=== PATIENT | male | born 1935 | race Caucasian/White ===

== ENCOUNTER 2016-12-29 11:26 | Inpatient (IN) | payer OTHER ==
[~2016-12-29] VITALS: Ht 160 cm; Wt 52.0 kg
[2016-12-29 15:09] VITALS: TEMP 98.5
[2016-12-29] MEDS ORDERED: PIPER-TAZO 3.375 GM IV (PMX) 100 ML IVPB ONE (15:30)
[2016-12-29] MEDS ORDERED: SOD CHLORIDE 0.9% 500 ML IV STA (15:32)
--- NOTE | 2016-12-29 15:44 | ERA ---
ER Documentation Chief Complaint Date/Time DATE: 12/29/16 TIME: 15:33 Chief Complaint Sent from for margaretteal HPI Patient is an 81-year-old male with recent surgery 3 months ago for prostatectomy and cystectomy with formation of an ileal conduit. He presents to the ER today with 1 week with no urine output from his urostomy. He has been having clear diarrhea. He has had subjective fever and generalized weakness. There is no history of vomiting. He denies abdominal pain. He denies shortness of breath. He was treated with a course of Flagyl for unknown reason 2 weeks ago. ROS All systems reviewed and are negative except as per history of present illness. Allergies Allergies: Coded Allergies: No Known Allergy (Unverified , 12/29/16) PMhx/Soc Past medical history: Prostate cancer Past surgical history: Prostatectomy and cystectomy Social history: Denies tobacco or alcohol FmHx Family History: No coronary disease, No diabetes Physical Exam Vitals Vital Signs Date Time Temp Pulse Resp B/P Pulse Ox O2 Delivery O2 Flow Rate FiO2 12/29/16 15:09 98.5 85 20 173/68 99 12/29/16 11:36 98.5 91 20 125/69 97 Physical Exam Const: Alert, no acute distress Head: Atraumatic Eyes: Normal Conjunctiva, no pallor, no icterus ENT: Normal External Ears, Nose and Mouth. Mucous membranes moist Neck: Full range of motion. No meningismus. Resp: Clear to auscultation bilaterally, no wheezes. Trace left basilar rales Cardio: Regular rate and rhythm, no murmurs Abd: Soft, non tender, non distended. Multiple surgical scars. Right lower quadrant urostomy Skin: No petechiae or rashes Back: No midline or flank tenderness Ext: No cyanosis, 2+ pitting edema bilateral legs Neur: Awake and alert, cranial nerves II through XII intact bilaterally, moves 4 extremities appropriately Psych: Normal Mood and Affect Result Diagram: 12/29/16 1625 12/29/16 1625 Results 24 hrs Laboratory Tests Test 12/29/16 16:25 White Blood Count 12.010^3/ul Red Blood Count 3.7810^6/ul Hemoglobin 10.2g/dl Hematocrit 31.2% Mean Corpuscular Volume 82.5fl Mean Corpuscular Hemoglobin 27.0pg Mean Corpuscular Hemoglobin Concent 32.7g/dl Red Cell Distribution Width 21.2% Platelet Count 08088^3/UL Mean Platelet Volume 8.7fl Neutrophils % 82.5% Lymphocytes % 9.9% Monocytes % 6.9% Eosinophils % 0.1% Basophils % 0.3% Nucleated Red Blood Cells % 0.0/100WBC Neutrophils # 9.910^3/ul Lymphocytes # 1.210^3/ul Monocytes # 0.810^3/ul Eosinophils # 0.010^3/ul Basophils # 0.010^3/ul Nucleated Red Blood Cells # 0.010^3/ul Prothrombin Time 16.5Sec Prothrombin Time Ratio 1.3 INR International Normalized Ratio 1.32 Sodium Level 133mmol/L Potassium Level 4.4mmol/L Chloride Level 109mmol/L Carbon Dioxide Level 12mmol/L Anion Gap 16 Blood Urea Nitrogen 66mg/dl Creatinine 3.13mg/dl Glucose Level 111mg/dl Lactic Acid Level 0.8mmol/L Calcium Level 8.8mg/dl Total Bilirubin 0.1mg/dl Direct Bilirubin 0.00mg/dl Indirect Bilirubin 0.1mg/dl Aspartate Amino Transf (AST/SGOT) 18IU/L Alanine Aminotransferase (ALT/SGPT) 26IU/L Alkaline Phosphatase 50IU/L Total Protein 7.6g/dl Albumin 4.2g/dl Globulin 3.40g/dl Albumin/Globulin Ratio 1.23 Current Medications Medications (Trade) Dose Ordered Sig/Tutu Route PRN Reason Start Time Stop Time Status Last Admin Dose Admin Piperacillin Sod/ Tazobactam Sod 100 ml @ 200 mls/hr ONCE ONCE IVPB 12/29/16 15:30 12/29/16 15:30 DC Sodium Chloride (NS) 500 ml @ 500 mls/hr Q1H STAT IV 12/29/16 15:32 12/29/16 16:31 DC 12/29/16 16:10 Furosemide 20 mg 20 mg ONCE ONCE IV 12/29/16 18:30 12/29/16 18:31 DC Sodium Chloride (NS) 500 ml @ 500 mls/hr Q1H ONCE IV 12/29/16 18:30 12/29/16 19:29 Ondansetron HCl (Zofran Inj) 4 mg BRIDGE ORDER PRN IV NAUSEA AND/OR VOMITING 12/29/16 19:00 12/30/16 18:59 Acetaminophen (Tylenol Tab) 650 mg ER BRIDGE PRN PO MILD PAIN/FEVER 12/29/16 19:00 12/30/16 18:59 Procedures/MDM MDM: Patient is an 81-year-old male with urostomy for 3 months who presents with no urine output for 1 week. He is afebrile. He has signs of edema in the extremities. He has history of renal insufficiency of unknown severity and duration in the past. A CT scan was performed and shows severe right hydronephrosis and moderate left hydronephrosis. I spoke with Dr. Cook, the urologist on-call, and he states that the hydronephrosis is likely due to reflux , and that the patient may be prerenal. He recommended given IV fluids and Lasix. The patient will be admitted to the hospital for further workup by Dr. Liriano. Per Dr. Cook, if the patient is not producing urine after receiving hydration and diuretics, he will require a nephrostomy. The patient does have signs of acidosis, but it appears to be hyperchloremic, as anion gap is not significantly elevated. Departure Diagnosis: Primary Impression: Acute renal failure Qualified Code: N17.9 - Acute renal failure, unspecified acute renal failure type Additional Impression: Hydronephrosis Qualified Code: N13.30 - Hydronephrosis, unspecified hydronephrosis type Condition: LATOYA Sweeney MD Dec 29, 2016 15:44
--- NOTE | 2016-12-29 16:20 | RADRPT ---
PROCEDURE: Chest x-ray CLINICAL INDICATION: Abdominal pain TECHNIQUE: Chest single view COMPARISON: None FINDINGS: The heart is normal in size. The pulmonary vessels are normal in caliber. The lungs are clear. Th e costophrenic angles are sharp. The visualized bony thorax is unremarkable. IMPRESSION: No acute cardiopulmonary disease. RPTAT: HH .Miguel Taylor MD, Date Time Electronically viewed and signed by .Miguel Taylor MD, MD on 12/29/2016 16:20 .W/
[2016-12-29 16:32] LABS: ADD SCAN DIFF NO
[2016-12-29 16:34] LABS: BASOPHILS % 0.3 % (0.0-2.0); EOSINOPHILS % 0.1 % (0.0-7.0); HEMATOCRIT 31.2 % (42.0-52.0); HEMOGLOBIN 10.2 g/dl (14.0-18.0); LYMPHOCYTES # 1.2 10^3/ul (0.8-2.9); LYMPHOCYTES % 9.9 % (15.0-51.0); MEAN CORPUSCULAR HGB CONC 32.7 g/dl (32.0-37.0); MEAN CORPUSCULAR VOLUME 82.5 fl (82.0-101.0); MEAN PLATELET VOLUME 8.7 fl (7.4-10.4); MONOCYTE # 0.8 10^3/ul (0.3-0.9); MONOCYTES % 6.9 % (0.0-11.0); NEUTROPHIL # 9.9 10^3/ul (1.6-7.5); NEUTROPHILS % 82.5 % (39.0-77.0); PLATELET COUNT 293 10^3/UL (140-415); RED BLOOD COUNT 3.78 10^6/ul (4.70-6.10); RED CELL DISTRIBUTION WIDTH 21.2 % (11.5-14.5)
[2016-12-29 16:49] LABS: INR 1.32; PROTIME 16.5 Sec (12.2-14.2); PT RATIO 1.3
[2016-12-29 16:51] LABS: ALBUMIN 4.2 g/dl (3.3-4.9); ALBUMIN/GLOBULIN RATIO 1.23; BILIRUBIN,INDIRECT 0.1 mg/dl (0-1.1); BILIRUBIN,TOTAL 0.1 mg/dl (0.2-1.3); CALCIUM 8.8 mg/dl (8.4-10.2); CREATININE 3.13 mg/dl (0.61-1.24); POTASSIUM 4.4 mmol/L (3.5-5.1); TOTAL PROTEIN 7.6 g/dl (6.1-8.1)
--- NOTE | 2016-12-29 17:21 | RADRPT ---
PROCEDURE: CT abdomen and pelvis without IV contrast. CLINICAL INDICATION: Abdominal pain TECHNIQUE: CT scan of the abdomen and pelvis without contrast was performed on the [employer] volumetric [address] scanner. The patient was scanned without intravenous contrast. Coronal and sagittal refo rmatted images were obtained from the axial source images. The CTDI vol is 6.82 mGy and the DLP is 3 37.06 mGy-cm. COMPARISON: None. FINDINGS: CT abdomen: A bleb is seen in the right lower lobe. The remainder of the lung bases are clear. The heart size is not enlarged and is without pericardial thickening or effusion. The liver is normal in size and density and is without focal mass or intrahepatic biliary dilatation . Simple hepatic cysts are seen with the largest measuring 2.7 x 2.2 cm in size. The spleen is radha l in size and homogeneous in density. A small hiatal hernia is seen. The stomach is otherwise grossl y unremarkable. a small cystic structure is seen in the pancreatic tail measuring 8 mm in size. Th e remainder of the pancreas as visualized is normal. The gallbladder and biliary tree are unremarka ble and there is no evidence for common bile duct dilatation. The adrenal glands are symmetric and normal. The kidneys are symmetric in size. Severe right hydroureteronephrosis is seen with moderat e left hydroureteronephrosis. No renal calculus or mass lesion is seen. The aorta is of normal in caliber. There is no retroperitoneal lymphadenopathy. The yamileth hepatis region is clear. A right lower quadrant stoma is seen containing the distal small bowel. Anastomot ic sutures are seen in the right hemicolon. The transverse colon, left hemicolon, and the rectosigm oid region are fluid filled and distended. The right hemicolon is stool-filled. The remainder of th e small bile and mesentery, as visualized, are otherwise unremarkable. No inflammatory changes in th e periappendiceal region is seen. CT pelvis: The prostate and seminal vesicles are not identified. Multiple surgical clips in the pelvis are see n. The pelvic sidewalls and inguinal regions are clear. No pelvic mass, lymphadenopathy, or free f luid is seen. No acute inflammation is seen. The urinary bladder is not identified. Degenerative spondylosis of the lumbar spine is seen. No osteolytic or osteoblastic lesion is detec leesa. IMPRESSION: 1. Evidence of a prior cystectomy and cholecystectomy as described above. 2. Severe right hydroureteronephrosis and moderate left hydroureteronephrosis which may be secondar y to reflux from urinary diversion given the right lower quadrant stoma. Correlation to prior surgi michelle history is suggested. 3. Fluid filled large bowel from the transverse colon to the rectosigmoid region which may be secon blu to colitis. The possibility of a colonic ileus should also be considered. 4. Small hiatal hernia. RPTAT: HPNM Physician Henok Date Time Electronically viewed and signed by Damir Garcia Physician on 12/29/2016 17:21 /
[2016-12-29] MEDS ORDERED: SOD CHLORIDE 0.9% 500 ML IV ONE (18:30)
[2016-12-29] MEDS ORDERED: FUROSEMIDE 20 MG INJ IV ONE (18:30)
[2016-12-29] MEDS ORDERED: ACETAMINOPHEN 325 MG TAB PO PRN (19:00)
[2016-12-29] MEDS ORDERED: ONDANSETRON 4 MG INJ IV PRN ×2 (19:00→19:30)
[2016-12-29] MEDS ORDERED: DEXTROSE 5%-0.45% NACL 1,000 ML IV SCH (19:20)
[2016-12-29] MEDS ORDERED: ACETAMINOPHEN 650 MG SUPP PR PRN (19:30)
[2016-12-29] MEDS ORDERED: DOCUSATE SODIUM 100 MG CAP PO PRN (19:30)
[2016-12-29] MEDS ORDERED: BISACODYL 10 MG SUPP PR PRN (19:30)
[2016-12-29] MEDS ORDERED: ZOLPIDEM 5 MG TAB PO PRN (19:30)
[2016-12-29] MEDS ORDERED: morphine 2 MG INJ IV PRN (19:30)
[2016-12-29] MEDS ORDERED: MAGNESIUM HYDROXIDE 30ML CUP PO PRN (19:30)
[2016-12-29] MEDS ORDERED: BISACODYL (EC) 5 MG TAB PO PRN (19:30)
[2016-12-29] MEDS ORDERED: NACL 0.9% 3 ML SYG IV SCH (19:30)
[2016-12-29 20:57] VITALS: Ht 160 cm; Wt 52.0 kg
[2016-12-29 20:58] VITALS: BP 162/77; PULSE 162; RESP 18
[2016-12-29] MEDS: LORAZEPAM 0.5 MG TAB PO SCH (22:26)
[2016-12-29] MEDS: hydrALAzine 20 MG INJ IV PRN (22:27)
[2016-12-29 22:40] LABS: ADD UMIC YES; UR ASCORBIC ACID NEGATIVE (NEGATIVE); UR BILIRUBIN (Dip) NEGATIVE (NEGATIVE); UR BLOOD (Dip) 2+ mg/dL (NEGATIVE); UR CLARITY CLOUDY (CLEAR); UR COLOR YELLOW (YELLOW); UR GLUCOSE (Dip) NEGATIVE (NEGATIVE); UR KETONES (Dip) NEGATIVE (NEGATIVE); UR LEUKOCYTE ESTERASE (Dip) 3+ Leu/ul (NEGATIVE); UR MUCUS FEW /HPF (NONE SEEN); UR NITRITE (Dip) NEGATIVE (NEGATIVE); UR RBC 33 /HPF (0-5); UR SPECIFIC GRAVITY (Dip) 1.006 (1.003-1.030); UR SQUAMOUS EPITHELIAL CELL FEW /HPF (FEW); UR TOTAL PROTEIN (Dip) 1+ mg/dl (NEGATIVE); UR UROBILINOGEN (Dip) NEGATIVE (NEGATIVE)
--- NOTE | 2016-12-29 22:57 | QN ---
Documentation Comment [id number] MIKE TORREZ MD Dec 29, 2016 22:57
[2016-12-29] MEDS ORDERED: SODIUM BICARBONATE (IV ADD) 50 MEQ in DEXTROSE 5%-0.45% NACL 1,000 ML IV SCH (23:30)
--- NOTE | 2016-12-30 05:01 | HP ---
DATE OF ADMISSION: 12/29/2016 HISTORY OF PRESENT ILLNESS: Mr. Puga is an 81-year-old male with history of prostate and questionable bladder cancer who came from [place]. The patient was seen by er md in the ER. The patient is status post prostatectomy, cystectomy, and the patient had _. Now he has decreased urine output and is admitted for further management. Blood pressure is 173/68. WBC 12, hematocrit 31.2, platelet count of 293. Sodium 133, BUN 66, creatinine 0.13. The patient had abdominopelvic scan that showed the patient has evidence of prior cystectomy and cholecystectomy, severe right hydroureteronephrosis, and moderate left hydroureteronephrosis which may be secondary to reflux from urinary diversion, fluid-filled large bowel from the transverse colon to the rectosigmoid. The patient is admitted for further management. PAST MEDICAL HISTORY: As mentioned above, history of cystectomy, prostatectomy , cholecystectomy. ALLERGY HISTORY: NEGATIVE. FAMILY HISTORY: Negative. SOCIAL HISTORY: Negative. REVIEW OF SYSTEMS: Cannot be obtained. PHYSICAL EXAMINATION: GENERAL: The patient is awake and alert. VITAL SIGNS: Stable. HEENT: Head is atraumatic, normocephalic. Pupils equal, reactive to light. NECK: Supple. No JVD. LUNGS: Clear. CARDIOVASCULAR: S1, S2 normal. ABDOMEN: Soft, slightly distended. Bowel sounds positive. The patient has a urostomy bag noted. EXTREMITIES: There is no cyanosis, clubbing, or edema. CENTRAL NERVOUS SYSTEM: The patient is awake, alert, with no focal deficit. LABORATORY DATA: As mentioned above. IMPRESSION: 1. Possible acute on chronic kidney disease. 2. Urinary tract infection. 3. Hyponatremia. 4. Metabolic acidosis. 5. Dehydration. 6. Anemia. 7. Incomplete database. PLAN: To obtain urine sodium and creatinine, and the patient will be given IV fluid. The patient will have bicitra as well as the patient will have antibiotic. Urology consultation, deep venous thrombosis prophylaxis, and pain medication orders were done. Dictated By: MIKE FERRIS/MARIA ELENA Conf#: [id number] DID#: [id number] LISANDRA
[2016-12-30 05:09] LABS: ADD SCAN DIFF NO
[2016-12-30 05:23] LABS: BASOPHILS % 0.3 % (0.0-2.0); EOSINOPHILS # 0.1 10^3/ul (0.0-0.5); EOSINOPHILS % 1.1 % (0.0-7.0); HEMATOCRIT 29.1 % (42.0-52.0); HEMOGLOBIN 9.2 g/dl (14.0-18.0); LYMPHOCYTES # 1.6 10^3/ul (0.8-2.9); LYMPHOCYTES % 18.2 % (15.0-51.0); MEAN CORPUSCULAR HEMOGLOBIN 26.3 pg (29.0-33.0); MEAN CORPUSCULAR HGB CONC 31.6 g/dl (32.0-37.0); MEAN CORPUSCULAR VOLUME 83.1 fl (82.0-101.0); MEAN PLATELET VOLUME 8.8 fl (7.4-10.4); MONOCYTE # 0.9 10^3/ul (0.3-0.9); MONOCYTES % 9.8 % (0.0-11.0); NEUTROPHIL # 6.2 10^3/ul (1.6-7.5); NEUTROPHILS % 70.3 % (39.0-77.0); PLATELET COUNT 260 10^3/UL (140-415); RED CELL DISTRIBUTION WIDTH 21.2 % (11.5-14.5); WHITE BLOOD COUNT 8.9 10^3/ul (4.8-10.8)
[2016-12-30] MEDS: PANTOPRAZOLE 40 MG INJ IV SCH (05:40)
[2016-12-30 05:45] LABS: ALBUMIN/GLOBULIN RATIO 0.93; BILIRUBIN,INDIRECT 0.1 mg/dl (0-1.1); BILIRUBIN,TOTAL 0.1 mg/dl (0.2-1.3); CALCIUM 8.7 mg/dl (8.4-10.2); CREATININE 2.85 mg/dl (0.61-1.24); POTASSIUM 4.1 mmol/L (3.5-5.1); TOTAL PROTEIN 6.2 g/dl (6.1-8.1)
[2016-12-30 07:00] VITALS: BP 127/59; RESP 20
[2016-12-30] MEDS: SODIUM BICARBONATE (IV ADD) 100 MEQ in DEXTROSE 5%-0.45% NACL 900 ML IV SCH ×2 (08:28→22:05)
--- NOTE | 2016-12-30 18:57 | RADRPT ---
PROCEDURE: XR Abdomen. CLINICAL INDICATION: Abdominal pain, constipation, only. A TECHNIQUE: AP abdomen x-ray. COMPARISON: CT abdomen and pelvis December 29, 2016 FINDINGS: The bowel gas pattern is normal. There is no evidence of obstruction. There is diffuse, mild constip ation, and in intestinal ileus. There are no findings of free air or perforation. There are no abnormal calcifications overlying the urinary tracts. There are surgical clips throughout the pelvis. The osseus structures are unremarkable. IMPRESSION: Mild constipation with intestinal ileus. Overall, no significant interval change. RPTAT: QQ .Herminia Mckeon MD, MD Date Time Electronically viewed and signed by .Herminia Mckeon MD, on 12/30/2016 18:56 .F/
[2016-12-30] MEDS: hydrALAzine 20 MG INJ IV PRN (19:41)
[2016-12-30 19:43] VITALS: BP 182/84; PULSE 84; RESP 18
[2016-12-30 19:46] VITALS: BP 152/56; PULSE 96; RESP 18
[2016-12-30] MEDS: CITRIC ACID/SODIUM CITRATE 15 ML CUP PO SCH (20:57)
[2016-12-30] MEDS: LORAZEPAM 0.5 MG TAB PO SCH (20:57)
[2016-12-31] MEDS: PANTOPRAZOLE 40 MG INJ IV SCH (05:27)
[2016-12-31 09:00] VITALS: BP 166/79; RESP 20
[2016-12-31] MEDS: hydrALAzine 20 MG INJ IV PRN ×2 (09:10→20:45)
[2016-12-31] MEDS: CITRIC ACID/SODIUM CITRATE 15 ML CUP PO SCH ×3 (09:10→20:45)
[2016-12-31 09:34] VITALS: BP 130/60; PULSE 96; RESP 20
[2016-12-31] MEDS: SODIUM BICARBONATE (IV ADD) 100 MEQ in DEXTROSE 5%-0.45% NACL 900 ML IV SCH (14:42)
[2016-12-31 17:38] VITALS: BP 144/75; PULSE 91; RESP 16
--- NOTE | 2016-12-31 18:23 | PN ---
Date/Time of Note Date/Time of Note DATE: 12/31/16 TIME: 18:22 Assessment/Plan VTE Prophylaxis VTE Prophylaxis Intervention: other Lines/Catheters IV Catheter Type (from Nrs): Peripheral IV Urinary Cath still in place: No Assessment/Plan Chief Complaint/Hosp Course IMPRESSION: 1. Possible acute on chronic kidney disease. 2. Urinary tract infection. 3. Hyponatremia. 4. Metabolic acidosis. 5. Dehydration. 6. Anemia. 7. Incomplete database. plan ck labs bicitra Problems: Subjective 24 Hr Interval Summary Respiratory: no complaints Cardiovascular: no complaints Exam/Review of Systems Vital Signs Vitals Vital Signs Date Time Temp Pulse Resp B/P Pulse Ox O2 Delivery O2 Flow Rate FiO2 12/31/16 17:38 98.0 91 16 144/75 98 Room Air Intake and Output 12/30/16 12/30/16 12/31/16 15:00 23:00 07:00 Intake Total 210 ml 2280 ml 700 ml Output Total 0 ml Balance 210 ml 2280 ml 700 ml Exam Neck: supple Respiratory: clear to auscultation Cardiovascular: regular rate and rhythm Gastrointestinal: soft Results Result Diagram: 12/30/16 0450 12/30/16 0450 Medications Medications Current Medications Ondansetron HCl (Zofran Inj) 4 mg Q6H PRN IV NAUSEA AND/OR VOMITING; Start at 19:30 Acetaminophen (Tylenol Tab) 650 mg Q6H PRN PO PAIN LEVEL 1-3 OR FEVER; Start at 19:30 Acetaminophen (Tylenol Supp) 650 mg Q6H PRN [place] PAIN LEVEL 1-3 OR FEVER; Start 12/29/16 at 19:30 Morphine Sulfate (morphine) 2 mg Q4H PRN IV SEVERE PAIN LEVEL 7-10; Start 12/29 at 19:30 Docusate Sodium (Colace) 100 mg Q12H PRN PO CONSTIPATION; Start 12/29/16 at 19: 30 Magnesium Hydroxide (Milk Of Mag) 30 ml DAILY PRN PO CONSTIPATION; Start at 19:30 Bisacodyl (Dulcolax) 5 mg DAILY PRN PO CONSTIPATION; Start 12/29/16 at 19:30 Bisacodyl (Dulcolax Supp) 10 mg DAILY PRN [place] CONSTIPATION; Start 12/29/16 at 19 :30 Zolpidem Tartrate (Ambien) 5 mg QHS PRN PO SLEEP; Start 12/29/16 at 19:30 Lorazepam (Ativan) 0.5 mg HS PO Last administered on 12/30/16 20:57; Admin Dose 0.5 MG; Start 12/29/16 at 22:15 Hydralazine HCl 10 mg 10 mg Q6H PRN IV SBP>155 Last administered on 12/31/16 09:10; Admin Dose 10 MG; Start 12/29/16 at 22:30 Sodium Bicarbonate/ Dextrose/Sodium Chloride (Na Bicarb/D5-1/ 2ns) 1,000 ml @ 70 mls/hr [id number] IV Last administered on 12/31/16 14:42; Admin Dose 70 MLS/HR ; Start 12/30/16 at 07:00 Citric Acid/ Sodium Citrate (Bicitra) 30 ml TID PO Last administered on 14:16; Admin Dose 30 ML; Start 12/30/16 at 21:00 Pantoprazole (Protonix Tab) 40 mg DAILY@06 PO ; Start 01/01/17 at 06:00 MIKE TORREZ MD Dec 31, 2016 18:23
--- NOTE | 2016-12-31 18:24 | PN ---
Date/Time of Note Date/Time of Note DATE: 12/31/16 TIME: 18:23 Assessment/Plan VTE Prophylaxis VTE Prophylaxis Intervention: other Lines/Catheters IV Catheter Type (from Nrs): Peripheral IV Urinary Cath still in place: No Assessment/Plan Chief Complaint/Hosp Course IMPRESSION: 1. Possible acute on chronic kidney disease. 2. Urinary tract infection. 3. Hyponatremia. 4. Metabolic acidosis. 5. Dehydration. 6. Anemia. 7. Incomplete database. plan ck labs bicitra iv w nahco3 Problems: Subjective 24 Hr Interval Summary Gastrointestinal: no complaints Genitourinary: no complaints Exam/Review of Systems Vital Signs Vitals Vital Signs Date Time Temp Pulse Resp B/P Pulse Ox O2 Delivery O2 Flow Rate FiO2 12/31/16 17:38 98.0 91 16 144/75 98 Room Air Intake and Output 12/30/16 12/30/16 12/31/16 15:00 23:00 07:00 Intake Total 210 ml 2280 ml 700 ml Output Total 0 ml Balance 210 ml 2280 ml 700 ml Exam Respiratory: clear to auscultation Cardiovascular: regular rate and rhythm Gastrointestinal: soft Results Result Diagram: 12/30/16 0450 12/30/16 0450 Medications Medications Current Medications Ondansetron HCl (Zofran Inj) 4 mg Q6H PRN IV NAUSEA AND/OR VOMITING; Start at 19:30 Acetaminophen (Tylenol Tab) 650 mg Q6H PRN PO PAIN LEVEL 1-3 OR FEVER; Start at 19:30 Acetaminophen (Tylenol Supp) 650 mg Q6H PRN [place] PAIN LEVEL 1-3 OR FEVER; Start 12/29/16 at 19:30 Morphine Sulfate (morphine) 2 mg Q4H PRN IV SEVERE PAIN LEVEL 7-10; Start 12/29 at 19:30 Docusate Sodium (Colace) 100 mg Q12H PRN PO CONSTIPATION; Start 12/29/16 at 19: 30 Magnesium Hydroxide (Milk Of Mag) 30 ml DAILY PRN PO CONSTIPATION; Start at 19:30 Bisacodyl (Dulcolax) 5 mg DAILY PRN PO CONSTIPATION; Start 12/29/16 at 19:30 Bisacodyl (Dulcolax Supp) 10 mg DAILY PRN [place] CONSTIPATION; Start 12/29/16 at 19 :30 Zolpidem Tartrate (Ambien) 5 mg QHS PRN PO SLEEP; Start 12/29/16 at 19:30 Lorazepam (Ativan) 0.5 mg HS PO Last administered on 12/30/16 20:57; Admin Dose 0.5 MG; Start 12/29/16 at 22:15 Hydralazine HCl 10 mg 10 mg Q6H PRN IV SBP>155 Last administered on 12/31/16 09:10; Admin Dose 10 MG; Start 12/29/16 at 22:30 Sodium Bicarbonate/ Dextrose/Sodium Chloride (Na Bicarb/D5-1/ 2ns) 1,000 ml @ 70 mls/hr [id number] IV Last administered on 12/31/16 14:42; Admin Dose 70 MLS/HR ; Start 12/30/16 at 07:00 Citric Acid/ Sodium Citrate (Bicitra) 30 ml TID PO Last administered on 14:16; Admin Dose 30 ML; Start 12/30/16 at 21:00 Pantoprazole (Protonix Tab) 40 mg DAILY@06 PO ; Start 01/01/17 at 06:00 MIKE TORREZ MD Dec 31, 2016 18:24
[2016-12-31 19:01] LABS: CALCIUM 8.6 mg/dl (8.4-10.2); CREATININE 2.8 mg/dl (0.61-1.24); POTASSIUM 3.5 mmol/L (3.5-5.1)
[2016-12-31 20:02] VITALS: BP 172/78; RESP 18
[2016-12-31] MEDS: LORAZEPAM 0.5 MG TAB PO SCH (20:45)
[2016-12-31 22:30] VITALS: BP 148/70
[2017-01-01] MEDS: SODIUM BICARBONATE (IV ADD) 100 MEQ in DEXTROSE 5%-0.45% NACL 900 ML IV SCH ×3 (01:54→22:14)
[2017-01-01] MEDS: PANTOPRAZOLE (EC) 40 MG TAB PO SCH (05:49)
[2017-01-01 06:00] LABS: CALCIUM 8.3 mg/dl (8.4-10.2); CREATININE 2.67 mg/dl (0.61-1.24); POTASSIUM 3.2 mmol/L (3.5-5.1)
[2017-01-01 07:57] VITALS: BP 187/84; RESP 16
[2017-01-01] MEDS: hydrALAzine 20 MG INJ IV PRN ×2 (08:50→19:54)
[2017-01-01] MEDS: CITRIC ACID/SODIUM CITRATE 15 ML CUP PO SCH (08:50)
[2017-01-01] MEDS ORDERED: POTASSIUM CHLORIDE (SR) 20 MEQ TAB PO STA (09:54)
[2017-01-01 11:28] VITALS: BP 160/79; PULSE 86; RESP 18
[2017-01-01 12:14] LABS: INR 1.25; PROTIME 15.8 Sec (12.2-14.2); PT RATIO 1.2
[2017-01-01] MEDS: CITRIC ACID/NA CITRATE 30 ML CUP PO SCH ×2 (14:24→20:01)
--- NOTE | 2017-01-01 17:56 | PN ---
Date/Time of Note Date/Time of Note DATE: 01/01/17 TIME: 17:54 Assessment/Plan VTE Prophylaxis VTE Prophylaxis Intervention: other Lines/Catheters IV Catheter Type (from Nrs): Peripheral IV Urinary Cath still in place: No Assessment/Plan Chief Complaint/Hosp Course IMPRESSION: 1. Possible acute on chronic kidney disease. 2. Urinary tract infection. 3. Hyponatremia. 4. Metabolic acidosis. 5. Dehydration. 6. Anemia. 7. hydronephrosis plan ck labs bicitra iv w nahco3 gu consult pending kcl Problems: Subjective 24 Hr Interval Summary Cardiovascular: no complaints Gastrointestinal: no complaints Genitourinary: No flank pain Exam/Review of Systems Vital Signs Vitals Vital Signs Date Time Temp Pulse Resp B/P Pulse Ox O2 Delivery O2 Flow Rate FiO2 01/01/17 11:28 98.4 86 18 160/79 99 Room Air Intake and Output 12/31/16 12/31/16 01/01/17 15:00 23:00 07:00 Intake Total 650 ml 1960 ml 300 ml Output Total 100 ml Balance 650 ml 1960 ml 200 ml Exam Neck: supple Respiratory: clear to auscultation Cardiovascular: regular rate and rhythm Gastrointestinal: soft Genitourinary - Male: No CVA tenderness Results Result Diagram: 12/30/16 0450 01/01/17 0435 Results 24 hrs Laboratory Tests Test 12/31/16 18:10 01/01/17 04:35 01/01/17 11:40 Sodium Level 135 142 Potassium Level 3.5 3.2 L Chloride Level 108 # 113 H Carbon Dioxide Level 17 L 19 L Anion Gap 14 13 Blood Urea Nitrogen 57 H 54 H Creatinine 2.80 H 2.67 H Glucose Level 131 # 101 Calcium Level 8.6 8.3 L Prothrombin Time 15.8 H Prothrombin Time Ratio 1.2 INR International Normalized Ratio 1.25 Medications Medications Current Medications Ondansetron HCl (Zofran Inj) 4 mg Q6H PRN IV NAUSEA AND/OR VOMITING; Start at 19:30 Acetaminophen (Tylenol Tab) 650 mg Q6H PRN PO PAIN LEVEL 1-3 OR FEVER; Start at 19:30 Acetaminophen (Tylenol Supp) 650 mg Q6H PRN [place] PAIN LEVEL 1-3 OR FEVER; Start 12/29/16 at 19:30 Morphine Sulfate (morphine) 2 mg Q4H PRN IV SEVERE PAIN LEVEL 7-10; Start 12/29 at 19:30 Docusate Sodium (Colace) 100 mg Q12H PRN PO CONSTIPATION; Start 12/29/16 at 19: 30 Magnesium Hydroxide (Milk Of Mag) 30 ml DAILY PRN PO CONSTIPATION; Start at 19:30 Bisacodyl (Dulcolax) 5 mg DAILY PRN PO CONSTIPATION; Start 12/29/16 at 19:30 Bisacodyl (Dulcolax Supp) 10 mg DAILY PRN [place] CONSTIPATION; Start 12/29/16 at 19 :30 Zolpidem Tartrate (Ambien) 5 mg QHS PRN PO SLEEP; Start 12/29/16 at 19:30 Lorazepam (Ativan) 0.5 mg HS PO Last administered on 12/31/16 20:45; Admin Dose 0.5 MG; Start 12/29/16 at 22:15 Hydralazine HCl 10 mg 10 mg Q6H PRN IV SBP>155 Last administered on 01/01/17 08:50; Admin Dose 10 MG; Start 12/29/16 at 22:30 Sodium Bicarbonate/ Dextrose/Sodium Chloride (Na Bicarb/D5-1/ 2ns) 1,000 ml @ 70 mls/hr [id number] IV Last administered on 01/01/17 07:55; Admin Dose 70 MLS/HR ; Start 12/30/16 at 07:00 Pantoprazole (Protonix Tab) 40 mg DAILY@06 PO Last administered on 01/01/17 05 :49; Admin Dose 40 MG; Start 01/01/17 at 06:00 Citric Acid/ Sodium Citrate (Bicitra) 30 ml TID PO Last administered on 14:24; Admin Dose 30 ML; Start 01/01/17 at 13:00 MIKE TORREZ MD Jan 01, 2017 17:56
[2017-01-01 19:51] VITALS: BP 185/85; PULSE 82; RESP 18
[2017-01-01] MEDS: LORAZEPAM 0.5 MG TAB PO SCH (20:01)
[2017-01-01 20:03] VITALS: BP 144/78; PULSE 80; RESP 18
[2017-01-01 20:57] VITALS: BP 142/77; PULSE 82; RESP 18
[2017-01-01] MEDS ORDERED: CITRIC ACID/NA CITRATE 30 ML CUP PO SCH (21:00)
[2017-01-02] VITALS (12 sets, daily range): BP systolic 125–181; BP diastolic 68–98; PULSE 92–98; RESP 16–20
[2017-01-02] MEDS: PANTOPRAZOLE (EC) 40 MG TAB PO SCH (05:40)
[2017-01-02 05:48] LABS: CALCIUM 8.2 mg/dl (8.4-10.2); CREATININE 2.32 mg/dl (0.61-1.24); POTASSIUM 3.6 mmol/L (3.5-5.1)
[2017-01-02] MEDS: CITRIC ACID/NA CITRATE 30 ML CUP PO SCH ×3 (09:00→20:53)
[2017-01-02] MEDS: hydrALAzine 20 MG INJ IV PRN ×2 (13:02→20:12)
[2017-01-02] MEDS ORDERED: LIDOCAINE 1% (MDV) 20 ML INJ ONE (15:07)
[2017-01-02] MEDS ORDERED: CEFAZOLIN 1 GM/50 ML (PMX) 50 ML IVPB ONE (15:56)
[2017-01-02] MEDS ORDERED: SOD CHLORIDE 0.9% 500 ML ONE (15:56)
[2017-01-02] MEDS ORDERED: FENTAnyl 50 MCG/ML VIAL ONE (15:56)
[2017-01-02] MEDS ORDERED: MIDAZOLAM 1 MG/ML 2 ML INJ ONE (15:56)
--- NOTE | 2017-01-02 17:22 | RADRPT ---
PROCEDURE: Ultrasound guidance for needle placement for right nephrostomy. CLINICAL INDICATION: Right hydronephrosis. TECHNIQUE: Informed consent was obtained. The procedure, risks, benefits, complications and alternatives were explained to the patient. Risks including bleeding and infection were explained. The patient underst ood and was willing to proceed. A procedural pause was performed. The patient's name, date of , and procedure to be performed w ere verified. Using local anesthetic, sterile technique and ultrasound guidance, a 22-gauge Chiba needle was advan geo into a mid pole alexis in the right kidney. A 0.018 in guidewire was inserted. The remainder of the study was performed with fluoroscopic guidance. The patient tolerated procedure well. COMPARISON: None. FINDINGS: The ultrasound images demonstrate the needle within a midpole alexis of the right kidney. IMPRESSION: 1. Successful ultrasound guidance for placement of the needle in the mid pole alexis of the right ki dney. RPTAT: QQ .Zachariah Ashley MD, MD Date Time Electronically viewed and signed by .Zachariah Ashley MD, on 01/02/2017 17:22 .R/
--- NOTE | 2017-01-02 18:45 | PN ---
Date/Time of Note Date/Time of Note DATE: 01/02/17 TIME: 18:44 Assessment/Plan VTE Prophylaxis VTE Prophylaxis Intervention: other Lines/Catheters IV Catheter Type (from Nrs): Peripheral IV Urinary Cath still in place: No Assessment/Plan Chief Complaint/Hosp Course IMPRESSION: 1. Possible acute on chronic kidney disease. 2. Urinary tract infection. 3. Hyponatremia. 4. Metabolic acidosis. 5. Dehydration. 6. Anemia. 7. hydronephrosis plan ck labs bicitra iv w nahco3 gu consult pending UROSTOMY TUBE Problems: Subjective 24 Hr Interval Summary Subjective hx not possible: other (FEELING BETTER) Exam/Review of Systems Vital Signs Vitals Vital Signs Date Time Temp Pulse Resp B/P Pulse Ox O2 Delivery O2 Flow Rate FiO2 01/02/17 17:30 Nasal Cannula 2 01/02/17 17:20 96 18 129/68 95 01/02/17 16:30 98.0 Intake and Output 01/01/17 01/01/17 01/02/17 15:00 23:00 07:00 Intake Total 720 ml 1680 ml 740 ml Output Total 250 ml 120 ml Balance 720 ml 1430 ml 620 ml Exam Neck: supple Respiratory: clear to auscultation Cardiovascular: regular rate and rhythm Gastrointestinal: soft Musculoskeletal: nl extremities to inspection Extremities: normal pulses Results Result Diagram: 12/30/16 0450 01/02/17 0430 Results 24 hrs Laboratory Tests Test 01/02/17 04:30 01/02/17 09:48 Sodium Level 142 Potassium Level 3.6 Chloride Level 108 Carbon Dioxide Level 26 Anion Gap 12 Blood Urea Nitrogen 44 H Creatinine 2.32 H Glucose Level 89 Calcium Level 8.2 L Activated Partial Thromboplast Time 30.0 Medications Medications Current Medications Ondansetron HCl (Zofran Inj) 4 mg Q6H PRN IV NAUSEA AND/OR VOMITING; Start at 19:30 Acetaminophen (Tylenol Tab) 650 mg Q6H PRN PO PAIN LEVEL 1-3 OR FEVER; Start at 19:30 Acetaminophen (Tylenol Supp) 650 mg Q6H PRN [place] PAIN LEVEL 1-3 OR FEVER; Start 12/29/16 at 19:30 Morphine Sulfate (morphine) 2 mg Q4H PRN IV SEVERE PAIN LEVEL 7-10; Start 12/29 at 19:30 Docusate Sodium (Colace) 100 mg Q12H PRN PO CONSTIPATION; Start 12/29/16 at 19: 30 Magnesium Hydroxide (Milk Of Mag) 30 ml DAILY PRN PO CONSTIPATION; Start at 19:30 Bisacodyl (Dulcolax) 5 mg DAILY PRN PO CONSTIPATION; Start 12/29/16 at 19:30 Bisacodyl (Dulcolax Supp) 10 mg DAILY PRN [place] CONSTIPATION; Start 12/29/16 at 19 :30 Zolpidem Tartrate (Ambien) 5 mg QHS PRN PO SLEEP; Start 12/29/16 at 19:30 Lorazepam (Ativan) 0.5 mg HS PO Last administered on 01/01/17 20:01; Admin Dose 0.5 MG; Start 12/29/16 at 22:15 Hydralazine HCl 10 mg 10 mg Q6H PRN IV SBP>155 Last administered on 01/02/17 13:02; Admin Dose 10 MG; Start 12/29/16 at 22:30 Sodium Bicarbonate/ Dextrose/Sodium Chloride (Na Bicarb/D5-1/ 2ns) 1,000 ml @ 70 mls/hr [id number] IV Last administered on 01/01/17 22:14; Admin Dose 70 MLS/HR ; Start 12/30/16 at 07:00 Pantoprazole (Protonix Tab) 40 mg DAILY@06 PO Last administered on 01/01/17 05 :49; Admin Dose 40 MG; Start 01/01/17 at 06:00 Citric Acid/ Sodium Citrate (Bicitra) 30 ml TID PO Last administered on 20:01; Admin Dose 30 ML; Start 01/01/17 at 13:00 MIKE TORREZ MD Jan 02, 2017 18:44
[2017-01-02] MEDS: SODIUM BICARBONATE (IV ADD) 100 MEQ in DEXTROSE 5%-0.45% NACL 900 ML IV SCH (20:51)
[2017-01-02] MEDS: LORAZEPAM 0.5 MG TAB PO SCH (20:51)
[2017-01-03 00:31] VITALS: BP 119/56; RESP 18
[2017-01-03] MEDS: SODIUM BICARBONATE (IV ADD) 100 MEQ in DEXTROSE 5%-0.45% NACL 900 ML IV SCH (04:10)
[2017-01-03 05:25] LABS: ADD SCAN DIFF NO
[2017-01-03] MEDS: PANTOPRAZOLE (EC) 40 MG TAB PO SCH (06:13)
[2017-01-03] MEDS: ACETAMINOPHEN 325 MG TAB PO PRN (06:19)
[2017-01-03 06:28] LABS: ALBUMIN 3.2 g/dl (3.3-4.9); ALBUMIN/GLOBULIN RATIO 1.06; CALCIUM 8.3 mg/dl (8.4-10.2); CREATININE 1.93 mg/dl (0.61-1.24); POTASSIUM 3.5 mmol/L (3.5-5.1); TOTAL PROTEIN 6.2 g/dl (6.1-8.1)
[2017-01-03 07:00] VITALS: BP 180/85; RESP 18
[2017-01-03 08:09] LABS: HEMATOCRIT 30.4 % (42.0-52.0); HEMOGLOBIN 9.8 g/dl (14.0-18.0); MEAN CORPUSCULAR HEMOGLOBIN 26.5 pg (29.0-33.0); MEAN CORPUSCULAR HGB CONC 32.2 g/dl (32.0-37.0); MEAN CORPUSCULAR VOLUME 82.2 fl (82.0-101.0); MEAN PLATELET VOLUME 9.6 fl (7.4-10.4); RED CELL DISTRIBUTION WIDTH 21.2 % (11.5-14.5)
--- NOTE | 2017-01-03 08:13 | RADRPT ---
PROCEDURE: Right nephrostomy tube placement with ultrasound and fluoroscopic guidance. CLINICAL INDICATION: Right hydronephrosis. TECHNIQUE: Prior to the procedure, informed consent was obtained from the patient. Risks including bleeding an d infection were explained to the patient. The patient understood and was willing to proceed. Prio r to the procedure, a 1 g of Ancef was administered intravenously. A procedural pause was performed . The patient's name, date of , and procedure to be performed were verified. Using ultrasound guidance, a 22-gauge Chiba needle was advanced into the kidney. Contrast was injec leesa, opacifying the right renal collecting system. Following this, a 6-Bolivian Yueh needle was advan geo into the right middle pole posterior calyx with ultrasound guidance. The tip was confirmed to b e in position with fluoroscopic guidance. The inner cannula was removed leaving the plastic sheath in position. A guidewire was advanced through the plastic sheath into the right renal pelvis. Foll owing this, the Yueh catheter was removed leaving the guidewire in position. An 8 Bolivian dilator was then advanced over the Amplatz guidewire. This was then removed. An 8.5 Bolivian multipurpose drainage catheter was then advanced such the tip was coiled in the right renal pelvis. Nephrostogram was performed. The catheter was secured to the patient's skin with 2-0 silk suture. The position was confirmed with a nephrostogram with 30 ml of iodinated contrast injected though the nephrostomy catheter. The nephrostogram demonstrates the tube in good position. A total of 0.2 minutes of fluoroscopy time was used. A total of 7 images were obtained with the image intensifier. COMPARISON: None. FINDINGS: The nephrostogram demonstrates the right nephrostomy tube in satisfactory position. Opacification o f the right ureter demonstrates a mid right ureter obstruction and marked hydroureteronephrosis. IMPRESSION: 1. Satisfactory ultrasound and fluoroscopic guided right nephrostomy. 2. Marked right hydroureteronephrosis due to mid right ureter obstruction. RPTAT: QQ .Zachariah Ashley MD, Date Time Electronically viewed and signed by .Zachariah Ashley MD, on 01/03/2017 08:12 .R/
[2017-01-03 08:14] LABS: PLATELET COUNT 173 10^3/UL (140-415)
[2017-01-03] MEDS: CITRIC ACID/NA CITRATE 30 ML CUP PO SCH ×3 (08:15→21:19)
[2017-01-03] MEDS: hydrALAzine 20 MG INJ IV PRN (08:16)
[2017-01-03 09:45] LABS: EOSINOPHILS # 0.2 10^3/ul (0.0-0.5); LYMPHOCYTES # 1.6 10^3/ul (0.8-2.9); MONOCYTE # 0.1 10^3/ul (0.3-0.9); NEUTROPHIL # 4.1 10^3/ul (1.6-7.5)
[2017-01-03 20:23] VITALS: BP 198/95; RESP 20
[2017-01-03] MEDS: LORAZEPAM 0.5 MG TAB PO SCH (22:20)
--- NOTE | 2017-01-03 22:53 | PN ---
Date/Time of Note Date/Time of Note DATE: 01/03/17 TIME: 22:52 Assessment/Plan VTE Prophylaxis VTE Prophylaxis Intervention: other Lines/Catheters IV Catheter Type (from [facility] Peripheral IV Urinary Cath still in place: No Assessment/Plan Chief Complaint/Hosp Course IMPRESSION: 1. Possible acute on chronic kidney disease. 2. Urinary tract infection. 3. Hyponatremia. 4. Metabolic acidosis. better 5. Dehydration. 6. Anemia. 7. hydronephrosis s/p nephrostomy plan ck labs bicitra iv w [id number] dc gu consult pending UROSTOMY TUBE Problems: Subjective 24 Hr Interval Summary Gastrointestinal: no complaints Genitourinary: no complaints Exam/Review of Systems Vital Signs Vitals Vital Signs Date Time Temp Pulse Resp B/P Pulse Ox O2 Delivery O2 Flow Rate FiO2 01/03/17 20:23 98.9 89 20 /95 97 01/02/17 20:56 Room Air 01/02/17 17:30 2 Intake and Output 01/02/17 01/02/17 01/03/17 15:00 23:00 07:00 Intake Total 840 ml 340 ml Output Total 380 ml 750 ml Balance 460 ml -410 ml Exam Respiratory: clear to auscultation Cardiovascular: regular rate and rhythm Gastrointestinal: soft Musculoskeletal: nl extremities to inspection Extremities: normal pulses Results Result Diagram: 01/03/17 0700 01/03/17 0459 Results 24 hrs Laboratory Tests Test 01/03/17 04:59 01/03/17 07:00 Sodium Level 144 Potassium Level 3.5 Chloride Level 109 Carbon Dioxide Level 27 Anion Gap 12 Blood Urea Nitrogen 47 H Creatinine 1.93 H Glucose Level 102 Calcium Level 8.3 L Total Bilirubin 0.0 L Direct Bilirubin 0.00 Indirect Bilirubin 0.0 Aspartate Amino Transf (AST/SGOT) 17 Alanine Aminotransferase (ALT/SGPT) 22 Alkaline Phosphatase 39 L Total Protein 6.2 Albumin 3.2 L Globulin 3.00 Albumin/Globulin Ratio 1.06 White Blood Count 6.0 # Red Blood Count 3.70 L Hemoglobin 9.8 L Hematocrit 30.4 L Mean Corpuscular Volume 82.2 Mean Corpuscular Hemoglobin 26.5 L Mean Corpuscular Hemoglobin Concent 32.2 Red Cell Distribution Width 21.2 H Platelet Count 173 # Mean Platelet Volume 9.6 Neutrophils % 68.0 Lymphocytes % 26.0 Monocytes % 2.0 Eosinophils % 4.0 Neutrophils # 4.1 Lymphocytes # 1.6 Monocytes # 0.1 L Eosinophils # 0.2 Medications Medications Current Medications Ondansetron HCl (Zofran Inj) 4 mg Q6H PRN IV NAUSEA AND/OR VOMITING; Start at 19:30 Acetaminophen (Tylenol Tab) 650 mg Q6H PRN PO PAIN LEVEL 1-3 OR FEVER Last administered on 01/03/17 06:19; Admin Dose 650 MG; Start 12/29/16 at 19:30 Acetaminophen (Tylenol Supp) 650 mg Q6H PRN [place] PAIN LEVEL 1-3 OR FEVER; Start 12/29/16 at 19:30 Morphine Sulfate (morphine) 2 mg Q4H PRN IV SEVERE PAIN LEVEL 7-10; Start 12/29 at 19:30 Docusate Sodium (Colace) 100 mg Q12H PRN PO CONSTIPATION; Start 12/29/16 at 19: 30 Magnesium Hydroxide (Milk Of Mag) 30 ml DAILY PRN PO CONSTIPATION; Start at 19:30 Bisacodyl (Dulcolax) 5 mg DAILY PRN PO CONSTIPATION; Start 12/29/16 at 19:30 Bisacodyl (Dulcolax Supp) 10 mg DAILY PRN [place] CONSTIPATION; Start 12/29/16 at 19 :30 Zolpidem Tartrate (Ambien) 5 mg QHS PRN PO SLEEP; Start 12/29/16 at 19:30 Lorazepam (Ativan) 0.5 mg HS PO Last administered on 01/03/17 22:20; Admin Dose 0.5 MG; Start 12/29/16 at 22:15 Hydralazine HCl (Apresoline) 10 mg Q6H PRN IV SBP>155 Last administered on 01/03 08:16; Admin Dose 10 MG; Start 12/29/16 at 22:30 Pantoprazole (Protonix Tab) 40 mg DAILY@06 PO Last administered on 01/03/17 06 :13; Admin Dose 40 MG; Start 01/01/17 at 06:00 Citric Acid/ Sodium Citrate (Bicitra) 30 ml TID PO Last administered on 21:19; Admin Dose 30 ML; Start 01/01/17 at 13:00 Hydralazine HCl (Apresoline) 25 mg TID PO Last administered on 01/03/17t 21:10 ; Admin Dose 25 MG; Start 01/03/17 at 21:00 MIKE TORREZ MD Jan 03, 2017 22:53
[2017-01-03 23:47] VITALS: BP 184/84; RESP 19
[2017-01-04 04:00] VITALS: BP 167/72
[2017-01-04 05:56] LABS: ALBUMIN 2.8 g/dl (3.3-4.9); CALCIUM 8.2 mg/dl (8.4-10.2); CREATININE 1.67 mg/dl (0.61-1.24); POTASSIUM 3.2 mmol/L (3.5-5.1); TOTAL PROTEIN 5.6 g/dl (6.1-8.1)
[2017-01-04] MEDS: PANTOPRAZOLE (EC) 40 MG TAB PO SCH (06:52)
[2017-01-04 06:56] VITALS: BP 165/78; RESP 17
[2017-01-04 07:57] VITALS: BP 171/75; RESP 20
[2017-01-04] MEDS: CITRIC ACID/NA CITRATE 30 ML CUP PO SCH ×3 (08:36→21:02)
[2017-01-04] MEDS ORDERED: POTASSIUM CHLORIDE (SR) 20 MEQ TAB PO STA (08:54)
[2017-01-04 12:09] VITALS: BP 123/64; PULSE 67
--- NOTE | 2017-01-04 14:00 | CONS ---
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 in [place], no post op complication Now admitted with bilateral hydro and no urine from conduit Had rt NT and creat is improving but still little urine in conduit Respiratory: no complaints Cardiovascular: no complaints Gastrointestinal: no complaints Genitourinary: no complaints Social History Smoking Status: Never smoker Exam/Review of Systems Vital Signs Vitals Vital Signs Date Time Temp Pulse Resp B/P Pulse Ox O2 Delivery O2 Flow Rate FiO2 01/04/17 12:09 67 123/64 01/04/17 07:57 98.2 20 95 01/02/17 20:56 Room Air 01/02/17 17:30 2 Intake and Output 01/03/17 01/03/17 01/04/17 15:00 23:00 07:00 Intake Total 1160 ml Output Total 700 ml 1600 ml Balance 460 ml -1600 ml Results Result Diagram: 01/03/17 0700 01/04/17 0425 Results 24 hrs Laboratory Tests Test 01/04/17 04:25 Sodium Level 147 H Potassium Level 3.2 L Chloride Level 108 Carbon Dioxide Level 31 Anion Gap 11 Blood Urea Nitrogen 44 H Creatinine 1.67 H Glucose Level 92 Calcium Level 8.2 L Total Bilirubin 0.0 L Direct Bilirubin 0.00 Indirect Bilirubin 0.0 Aspartate Amino Transf (AST/SGOT) 16 Alanine Aminotransferase (ALT/SGPT) 15 Alkaline Phosphatase 38 L Total Protein 5.6 L Albumin 2.8 L Globulin 2.80 Albumin/Globulin Ratio 1.00 Medications Medications Current Medications Ondansetron HCl (Zofran Inj) 4 mg Q6H PRN IV NAUSEA AND/OR VOMITING; Start at 19:30 Acetaminophen (Tylenol Tab) 650 mg Q6H PRN PO PAIN LEVEL 1-3 OR FEVER Last administered on 01/03/17t 06:19; Admin Dose 650 MG; Start 12/29/16 at 19:30 Acetaminophen (Tylenol Supp) 650 mg Q6H PRN [place] PAIN LEVEL 1-3 OR FEVER; Start 12/29/16 at 19:30 Morphine Sulfate (morphine) 2 mg Q4H PRN IV SEVERE PAIN LEVEL 7-10; Start 12/29 at 19:30 Docusate Sodium (Colace) 100 mg Q12H PRN PO CONSTIPATION; Start 12/29/16 at 19: 30 Magnesium Hydroxide (Milk Of Mag) 30 ml DAILY PRN PO CONSTIPATION; Start at 19:30 Bisacodyl (Dulcolax) 5 mg DAILY PRN PO CONSTIPATION; Start 12/29/16 at 19:30 Bisacodyl (Dulcolax Supp) 10 mg DAILY PRN [place] CONSTIPATION; Start 12/29/16 at 19 :30 Zolpidem Tartrate (Ambien) 5 mg QHS PRN PO SLEEP; Start 12/29/16 at 19:30 Lorazepam (Ativan) 0.5 mg HS PO Last administered on 01/03/17 22:20; Admin Dose 0.5 MG; Start 12/29/16 at 22:15 Hydralazine HCl (Apresoline) 10 mg Q6H PRN IV SBP>155 Last administered on 01/03 08:16; Admin Dose 10 MG; Start 12/29/16 at 22:30 Pantoprazole (Protonix Tab) 40 mg DAILY@06 PO Last administered on 01/04/17 06 :52; Admin Dose 40 MG; Start 01/01/17 at 06:00 Citric Acid/ Sodium Citrate (Bicitra) 30 ml TID PO Last administered on 12:08; Admin Dose 30 ML; Start 01/01/17 at 13:00 Hydralazine HCl (Apresoline) 25 mg TID PO Last administered on 01/04/17 12:09 ; Admin Dose 25 MG; Start 01/03/17 at 21:00 Clonidine (Catapres) 0.1 mg Q6H PRN PO ELEVATED SYSTOLIC BP Last administered on 01/04/17 02:45; Admin Dose 0.1 MG; Start 01/04/17 at 01:00 CORINNE SHIRLEY MD Jan 04, 2017 14:00
[2017-01-04] MEDS ORDERED: IOHEXOL 300MG/ML 30 ML BTL ONE (16:22)
--- NOTE | 2017-01-04 17:54 | RADRPT ---
PROCEDURE: Fluoroscopic guided loopogram. CLINICAL INDICATION: Bilateral hydronephrosis. The patient has ileal loop urostomy. TECHNIQUE: Four images of the abdomen were obtained with an image intensifier during injection of the ileal loops with 50 ml of Omnipaque-300. 0.2 of fluoroscopy time was used. COMPARISON: Right nephrostogram dated 01/02/2017. FINDINGS: Images demonstrate contrast in the ileal loop. There is no reflux into the right ureter or left ure ter. IMPRESSION: 1. The loopogram demonstrates no reflux into the right or left ureter. RPTAT: QQ .Zachariah Ashley MD, MD Date Time Electronically viewed and signed by .Zachariah Ashley MD, on 01/04/2017 17:54 .R/
[2017-01-04 19:53] VITALS: BP 106/60; RESP 19
[2017-01-04] MEDS: LORAZEPAM 0.5 MG TAB PO SCH (21:01)
--- NOTE | 2017-01-04 21:03 | PN ---
Date/Time of Note Date/Time of Note DATE: 01/04/17 TIME: 21:02 Assessment/Plan VTE Prophylaxis VTE Prophylaxis Intervention: other Lines/Catheters IV Catheter Type (from Nrs): Peripheral IV Urinary Cath still in place: No Assessment/Plan Chief Complaint/Hosp Course IMPRESSION: 1. Possible acute on chronic kidney disease. 2. Urinary tract infection. 3. Hyponatremia. 4. Metabolic acidosis. better 5. Dehydration. 6. Anemia. 7. hydronephrosis s/p nephrostomy plan ck labs bicitra gu consult SEEN UROSTOMY TUBE Problems: Subjective 24 Hr Interval Summary Constitutional: no complaints Respiratory: no complaints Gastrointestinal: no complaints Genitourinary: No bleeding, No dysuria, No flank pain Exam/Review of Systems Vital Signs Vitals Vital Signs Date Time Temp Pulse Resp B/P Pulse Ox O2 Delivery O2 Flow Rate FiO2 01/04/17 19:53 98.3 81 19 106/60 97 01/02/17 20:56 Room Air 01/02/17 17:30 2 Intake and Output 01/03/17 01/03/17 01/04/17 15:00 23:00 07:00 Intake Total 1160 ml Output Total 700 ml 1600 ml Balance 460 ml -1600 ml Exam Neck: supple Respiratory: clear to auscultation Cardiovascular: regular rate and rhythm Gastrointestinal: soft Musculoskeletal: nl extremities to inspection Extremities: normal pulses Results Result Diagram: 01/03/17 0700 01/04/17 0425 Results 24 hrs Laboratory Tests Test 01/04/17 04:25 Sodium Level 147 H Potassium Level 3.2 L Chloride Level 108 Carbon Dioxide Level 31 Anion Gap 11 Blood Urea Nitrogen 44 H Creatinine 1.67 H Glucose Level 92 Calcium Level 8.2 L Total Bilirubin 0.0 L Direct Bilirubin 0.00 Indirect Bilirubin 0.0 Aspartate Amino Transf (AST/SGOT) 16 Alanine Aminotransferase (ALT/SGPT) 15 Alkaline Phosphatase 38 L Total Protein 5.6 L Albumin 2.8 L Globulin 2.80 Albumin/Globulin Ratio 1.00 Medications Medications Current Medications Ondansetron HCl (Zofran Inj) 4 mg Q6H PRN IV NAUSEA AND/OR VOMITING; Start at 19:30 Acetaminophen (Tylenol Tab) 650 mg Q6H PRN PO PAIN LEVEL 1-3 OR FEVER Last administered on 01/03/17t 06:19; Admin Dose 650 MG; Start 12/29/16 at 19:30 Acetaminophen (Tylenol Supp) 650 mg Q6H PRN [place] PAIN LEVEL 1-3 OR FEVER; Start 12/29/16 at 19:30 Morphine Sulfate (morphine) 2 mg Q4H PRN IV SEVERE PAIN LEVEL 7-10; Start 12/29 at 19:30 Docusate Sodium (Colace) 100 mg Q12H PRN PO CONSTIPATION; Start 12/29/16 at 19: 30 Magnesium Hydroxide (Milk Of Mag) 30 ml DAILY PRN PO CONSTIPATION; Start at 19:30 Bisacodyl (Dulcolax) 5 mg DAILY PRN PO CONSTIPATION; Start 12/29/16 at 19:30 Bisacodyl (Dulcolax Supp) 10 mg DAILY PRN [place] CONSTIPATION; Start 12/29/16 at 19 :30 Zolpidem Tartrate (Ambien) 5 mg QHS PRN PO SLEEP; Start 12/29/16 at 19:30 Lorazepam (Ativan) 0.5 mg HS PO Last administered on 01/03/17 22:20; Admin Dose 0.5 MG; Start 12/29/16 at 22:15 Hydralazine HCl (Apresoline) 10 mg Q6H PRN IV SBP>155 Last administered on 01/03 08:16; Admin Dose 10 MG; Start 12/29/16 at 22:30 Pantoprazole (Protonix Tab) 40 mg DAILY@06 PO Last administered on 01/04/17 06 :52; Admin Dose 40 MG; Start 01/01/17 at 06:00 Citric Acid/ Sodium Citrate (Bicitra) 30 ml TID PO Last administered on 12:08; Admin Dose 30 ML; Start 01/01/17 at 13:00 Hydralazine HCl (Apresoline) 25 mg TID PO Last administered on 01/04/17 12:09 ; Admin Dose 25 MG; Start 01/03/17 at 21:00 Clonidine (Catapres) 0.1 mg Q6H PRN PO ELEVATED SYSTOLIC BP Last administered on 01/04/17 02:45; Admin Dose 0.1 MG; Start 01/04/17 at 01:00 MIKE TORREZ MD Jan 04, 2017 21:03
[2017-01-05] MEDS: PANTOPRAZOLE (EC) 40 MG TAB PO SCH (05:32)
[2017-01-05 05:53] LABS: CALCIUM 7.7 mg/dl (8.4-10.2); CREATININE 1.67 mg/dl (0.61-1.24); POTASSIUM 3.3 mmol/L (3.5-5.1)
[2017-01-05 07:56] VITALS: BP 121/70; RESP 18
[2017-01-05] MEDS: POTASSIUM CHLORIDE (SR) 20 MEQ TAB PO SCH ×2 (08:21→20:51)
[2017-01-05] MEDS: CITRIC ACID/NA CITRATE 30 ML CUP PO SCH ×3 (08:21→20:51)
[2017-01-05 12:12] VITALS: BP 160/74; PULSE 67
--- NOTE | 2017-01-05 14:56 | PN ---
Date/Time of Note Date/Time of Note DATE: 01/05/17 TIME: 14:56 Assessment/Plan VTE Prophylaxis VTE Prophylaxis Intervention: ambulation Lines/Catheters IV Catheter Type (from Nrs): Peripheral IV Urinary Cath still in place: No Assessment/Plan Chief Complaint/Hosp Course 1. Possible acute on chronic kidney disease. 2. Urinary tract infection. 3. Hyponatremia. 4. Metabolic acidosis. better 5. Dehydration. 6. Anemia. 7. hydronephrosis s/p nephrostomy Problems: Subjective 24 Hr Interval Summary Constitutional: no complaints Cardiovascular: no complaints Gastrointestinal: no complaints Exam/Review of Systems Vital Signs Vitals Vital Signs Date Time Temp Pulse Resp B/P Pulse Ox O2 Delivery O2 Flow Rate FiO2 01/05/17 12:12 67 160/74 01/05/17 07:56 98.4 18 96 01/02/17 20:56 Room Air 01/02/17 17:30 2 Intake and Output 01/04/17 01/04/17 01/05/17 15:00 23:00 07:00 Intake Total 700 ml 240 ml Output Total 2150 ml 380 ml Balance -1450 ml -140 ml Exam Constitutional: alert Neck: supple Respiratory: clear to auscultation Cardiovascular: regular rate and rhythm Results Result Diagram: 01/03/17 0700 01/05/17 0445 Results 24 hrs Laboratory Tests Test 01/05/17 04:45 Sodium Level 140 Potassium Level 3.3 L Chloride Level 101 Carbon Dioxide Level 31 Anion Gap 11 Blood Urea Nitrogen 38 H Creatinine 1.67 H Glucose Level 90 Calcium Level 7.7 L Medications Medications Current Medications Ondansetron HCl (Zofran Inj) 4 mg Q6H PRN IV NAUSEA AND/OR VOMITING; Start at 19:30 Acetaminophen (Tylenol Tab) 650 mg Q6H PRN PO PAIN LEVEL 1-3 OR FEVER Last administered on 01/03/17t 06:19; Admin Dose 650 MG; Start 12/29/16 at 19:30 Acetaminophen (Tylenol Supp) 650 mg Q6H PRN [place] PAIN LEVEL 1-3 OR FEVER; Start 12/29/16 at 19:30 Morphine Sulfate (morphine) 2 mg Q4H PRN IV SEVERE PAIN LEVEL 7-10; Start 12/29 at 19:30 Docusate Sodium (Colace) 100 mg Q12H PRN PO CONSTIPATION; Start 12/29/16 at 19: 30 Magnesium Hydroxide (Milk Of Mag) 30 ml DAILY PRN PO CONSTIPATION; Start at 19:30 Bisacodyl (Dulcolax) 5 mg DAILY PRN PO CONSTIPATION; Start 12/29/16 at 19:30 Bisacodyl (Dulcolax Supp) 10 mg DAILY PRN [place] CONSTIPATION; Start 12/29/16 at 19 :30 Zolpidem Tartrate (Ambien) 5 mg QHS PRN PO SLEEP; Start 12/29/16 at 19:30 Lorazepam (Ativan) 0.5 mg HS PO Last administered on 01/04/17 21:01; Admin Dose 0.5 MG; Start 12/29/16 at 22:15 Hydralazine HCl (Apresoline) 10 mg Q6H PRN IV SBP>155 Last administered on 01/03 08:16; Admin Dose 10 MG; Start 12/29/16 at 22:30 Pantoprazole (Protonix Tab) 40 mg DAILY@06 PO Last administered on 01/05/17 05 :32; Admin Dose 40 MG; Start 01/01/17 at 06:00 Citric Acid/ Sodium Citrate (Bicitra) 30 ml TID PO Last administered on 12:12; Admin Dose 30 ML; Start 01/01/17 at 13:00 Hydralazine HCl (Apresoline) 25 mg TID PO Last administered on 01/05/17 12:12 ; Admin Dose 25 MG; Start 01/03/17 at 21:00 Clonidine (Catapres) 0.1 mg Q6H PRN PO ELEVATED SYSTOLIC BP Last administered on 01/04/17 02:45; Admin Dose 0.1 MG; Start 01/04/17 at 01:00 Potassium Chloride (Klor-Con 20) 20 meq BID PO Last administered on 01/05/17 08:21; Admin Dose 20 MEQ; Start 01/05/17 at 09:00 JESSICA MAYO Jan 05, 2017 14:56
[2017-01-05 20:38] VITALS: BP 181/66; RESP 22
[2017-01-05] MEDS: LORAZEPAM 0.5 MG TAB PO SCH ×2 (20:51→22:14)
[2017-01-05 22:14] VITALS: BP 180/74; PULSE 87
[2017-01-06 01:06] VITALS: BP_SYST 154; BP_SYST 157; BP_DIAS 70; PULSE 82
[2017-01-06 05:06] VITALS: BP 143/72; PULSE 69
[2017-01-06] MEDS: PANTOPRAZOLE (EC) 40 MG TAB PO SCH (05:29)
[2017-01-06 06:27] LABS: CALCIUM 8.1 mg/dl (8.4-10.2); CREATININE 1.76 mg/dl (0.61-1.24); POTASSIUM 3.5 mmol/L (3.5-5.1)
[2017-01-06 08:16] VITALS: BP 183/86; RESP 20
[2017-01-06] MEDS: CITRIC ACID/NA CITRATE 30 ML CUP PO SCH ×3 (09:08→20:22)
[2017-01-06] MEDS: POTASSIUM CHLORIDE (SR) 20 MEQ TAB PO SCH ×2 (09:09→20:23)
[2017-01-06 11:50] VITALS: BP 82/51; PULSE 83; RESP 18
[2017-01-06 13:35] VITALS: BP 102/56; PULSE 70; RESP 16
--- NOTE | 2017-01-06 15:17 | PN ---
Date/Time of Note Date/Time of Note DATE: 01/06/17 TIME: 15:16 Assessment/Plan VTE Prophylaxis VTE Prophylaxis Intervention: ambulation Lines/Catheters IV Catheter Type (from [facility]): Peripheral IV Urinary Cath still in place: No Assessment/Plan Chief Complaint/Hosp Course 1. Possible acute on chronic kidney disease. 2. Urinary tract infection. 3. Hyponatremia. 4. Metabolic acidosis. better 5. Dehydration. 6. Anemia. 7. hydronephrosis s/p nephrostomy Problems: Assessment/Plan 1. Urology on the case Subjective 24 Hr Interval Summary Constitutional: no complaints Exam/Review of Systems Vital Signs Vitals Vital Signs Date Time Temp Pulse Resp B/P Pulse Ox O2 Delivery O2 Flow Rate FiO2 01/06/17 13:35 70 16 102/56 Room Air 01/06/17 11:50 98 01/06/17 08:16 98.0 01/02/17 17:30 2 Intake and Output 01/05/17 01/05/17 01/06/17 15:00 23:00 07:00 Intake Total 1320 ml 600 ml Output Total 1400 ml 850 ml Balance -80 ml -250 ml Exam Head: normocephalic Neck: supple Respiratory: clear to auscultation Cardiovascular: regular rate and rhythm Results Result Diagram: 01/03/17 0700 01/06/17 0505 Results 24 hrs Laboratory Tests Test 01/06/17 05:05 Sodium Level 139 Potassium Level 3.5 Chloride Level 100 Carbon Dioxide Level 34 H Anion Gap 9 Blood Urea Nitrogen 37 H Creatinine 1.76 H Glucose Level 96 Calcium Level 8.1 L Medications Medications Current Medications Ondansetron HCl (Zofran Inj) 4 mg Q6H PRN IV NAUSEA AND/OR VOMITING; Start at 19:30 Acetaminophen (Tylenol Tab) 650 mg Q6H PRN PO PAIN LEVEL 1-3 OR FEVER Last administered on 01/03/17t 06:19; Admin Dose 650 MG; Start 12/29/16 at 19:30 Acetaminophen (Tylenol Supp) 650 mg Q6H PRN [place] PAIN LEVEL 1-3 OR FEVER; Start 12/29/16 at 19:30 Morphine Sulfate (morphine) 2 mg Q4H PRN IV SEVERE PAIN LEVEL 7-10; Start 12/29 at 19:30 Docusate Sodium (Colace) 100 mg Q12H PRN PO CONSTIPATION; Start 12/29/16 at 19: 30 Magnesium Hydroxide (Milk Of Mag) 30 ml DAILY PRN PO CONSTIPATION; Start at 19:30 Bisacodyl (Dulcolax) 5 mg DAILY PRN PO CONSTIPATION; Start 12/29/16 at 19:30 Bisacodyl (Dulcolax Supp) 10 mg DAILY PRN [place] CONSTIPATION; Start 12/29/16 at 19 :30 Zolpidem Tartrate (Ambien) 5 mg QHS PRN PO SLEEP; Start 12/29/16 at 19:30 Lorazepam (Ativan) 0.5 mg HS PO Last administered on 01/05/17 22:14; Admin Dose 0.5 MG; Start 12/29/16 at 22:15 Hydralazine HCl (Apresoline) 10 mg Q6H PRN IV SBP>155 Last administered on 01/03 08:16; Admin Dose 10 MG; Start 12/29/16 at 22:30 Pantoprazole (Protonix Tab) 40 mg DAILY@06 PO Last administered on 01/06/17 05: 29; Admin Dose 40 MG; Start 01/01/17 at 06:00 Citric Acid/ Sodium Citrate (Bicitra) 30 ml TID PO Last administered on 13:33; Admin Dose 30 ML; Start 01/01/17 at 13:00 Hydralazine HCl (Apresoline) 25 mg TID PO Last administered on 01/06/17 09:08; Admin Dose 25 MG; Start 01/03/17 at 21:00 Clonidine (Catapres) 0.1 mg Q6H PRN PO ELEVATED SYSTOLIC BP Last administered on 01/05/17 22:14; Admin Dose 0.1 MG; Start 01/04/17 at 01:00 Potassium Chloride (Klor-Con 20) 20 meq BID PO Last administered on 01/06/17 09 :09; Admin Dose 20 MEQ; Start 01/05/17 at 09:00 JESSICA MAYO Jan 06, 2017 15:17
[2017-01-06 19:53] VITALS: BP 173/74; RESP 20
[2017-01-06] MEDS: LORAZEPAM 0.5 MG TAB PO SCH (20:23)
[2017-01-07] MEDS: PANTOPRAZOLE (EC) 40 MG TAB PO SCH (05:38)
[2017-01-07 07:34] VITALS: BP 139/67; RESP 20
[2017-01-07] MEDS: CITRIC ACID/NA CITRATE 30 ML CUP PO SCH ×3 (09:52→20:19)
[2017-01-07] MEDS: POTASSIUM CHLORIDE (SR) 20 MEQ TAB PO SCH ×2 (09:52→20:20)
--- NOTE | 2017-01-07 18:09 | PN ---
Date/Time of Note Date/Time of Note DATE: 01/07/17 TIME: 18:06 Assessment/Plan VTE Prophylaxis VTE Prophylaxis Intervention: other Lines/Catheters IV Catheter Type (from Nrsg): Peripheral IV Urinary Cath still in place: No Assessment/Plan Chief Complaint/Hosp Course Impression #1 obstructive number of 2 status post UTI 3 patient has nephrostomy on the right 4 hydronephrosis of the left 5 hypertension Plan Nephrostomy tube on the left Patient will will benefit from from after the discharge to go to the [facility] Continue BP medication Problems: Subjective 24 Hr Interval Summary Free Text/Dictation Patient is doing fine Patient is waiting for nephrostomy tube on the left Discussed with Dr. Cook on the week Family is aware of patient's condition Eyes: no complaints Respiratory: no complaints Cardiovascular: no complaints Exam/Review of Systems Vital Signs Vitals Vital Signs Date Time Temp Pulse Resp B/P Pulse Ox O2 Delivery O2 Flow Rate FiO2 01/07/17 07:34 98.9 79 20 139/67 95 01/06/17 13:35 Room Air Intake and Output 01/06/17 01/06/17 01/07/17 15:00 23:00 07:00 Intake Total 300 ml Output Total 900 ml Balance -600 ml Exam Head: normocephalic ENMT: nl external ears & nose Neck: supple Respiratory: clear to auscultation Cardiovascular: regular rate and rhythm Gastrointestinal: soft Results Result Diagram: 01/03/17 0700 01/06/17 0505 Medications Medications Current Medications Ondansetron HCl (Zofran Inj) 4 mg Q6H PRN IV NAUSEA AND/OR VOMITING; Start at 19:30 Acetaminophen (Tylenol Tab) 650 mg Q6H PRN PO PAIN LEVEL 1-3 OR FEVER Last administered on 01/03/17t 06:19; Admin Dose 650 MG; Start 12/29/16 at 19:30 Acetaminophen (Tylenol Supp) 650 mg Q6H PRN [place] PAIN LEVEL 1-3 OR FEVER; Start 12/29/16 at 19:30 Morphine Sulfate (morphine) 2 mg Q4H PRN IV SEVERE PAIN LEVEL 7-10; Start 12/29 at 19:30 Docusate Sodium (Colace) 100 mg Q12H PRN PO CONSTIPATION; Start 12/29/16 at 19: 30 Magnesium Hydroxide (Milk Of Mag) 30 ml DAILY PRN PO CONSTIPATION; Start at 19:30 Bisacodyl (Dulcolax) 5 mg DAILY PRN PO CONSTIPATION; Start 12/29/16 at 19:30 Bisacodyl (Dulcolax Supp) 10 mg DAILY PRN [place] CONSTIPATION; Start 12/29/16 at 19 :30 Zolpidem Tartrate (Ambien) 5 mg QHS PRN PO SLEEP; Start 12/29/16 at 19:30 Lorazepam (Ativan) 0.5 mg HS PO Last administered on 01/06/17 20:23; Admin Dose 0.5 MG; Start 12/29/16 at 22:15 Hydralazine HCl (Apresoline) 10 mg Q6H PRN IV SBP>155 Last administered on 01/03 08:16; Admin Dose 10 MG; Start 12/29/16 at 22:30 Pantoprazole (Protonix Tab) 40 mg DAILY@06 PO Last administered on 01/07/17 05: 38; Admin Dose 40 MG; Start 01/01/17 at 06:00 Citric Acid/ Sodium Citrate (Bicitra) 30 ml TID PO Last administered on 13:20; Admin Dose 30 ML; Start 01/01/17 at 13:00 Hydralazine HCl (Apresoline) 25 mg TID PO Last administered on 01/07/17 13:20; Admin Dose 25 MG; Start 01/03/17 at 21:00 Clonidine (Catapres) 0.1 mg Q6H PRN PO ELEVATED SYSTOLIC BP Last administered on 01/07/17 06:26; Admin Dose 0.1 MG; Start 01/04/17 at 01:00 Potassium Chloride (Klor-Con 20) 20 meq BID PO Last administered on 01/07/17 09 :52; Admin Dose 20 MEQ; Start 01/05/17 at 09:00 MIKE TORREZ MD Jan 07, 2017 18:09
[2017-01-07] MEDS: LORAZEPAM 0.5 MG TAB PO SCH (20:20)
[2017-01-08] VITALS (13 sets, daily range): BP systolic 110–198; BP diastolic 64–86; PULSE 64–92; RESP 12–19
[2017-01-08 05:48] LABS: BASOPHILS % 0.5 % (0.0-2.0); EOSINOPHILS # 0.4 10^3/ul (0.0-0.5); EOSINOPHILS % 6.7 % (0.0-7.0); HEMATOCRIT 26.7 % (42.0-52.0); HEMOGLOBIN 8.2 g/dl (14.0-18.0); LYMPHOCYTES # 1.6 10^3/ul (0.8-2.9); LYMPHOCYTES % 28.7 % (15.0-51.0); MEAN CORPUSCULAR HEMOGLOBIN 25.5 pg (29.0-33.0); MEAN CORPUSCULAR HGB CONC 30.7 g/dl (32.0-37.0); MEAN CORPUSCULAR VOLUME 83.2 fl (82.0-101.0); MEAN PLATELET VOLUME 9.4 fl (7.4-10.4); MONOCYTE # 0.4 10^3/ul (0.3-0.9); MONOCYTES % 7.6 % (0.0-11.0); NEUTROPHIL # 3.1 10^3/ul (1.6-7.5); NEUTROPHILS % 56.3 % (39.0-77.0); PLATELET COUNT 219 10^3/UL (140-415); RED BLOOD COUNT 3.21 10^6/ul (4.70-6.10); RED CELL DISTRIBUTION WIDTH 19.3 % (11.5-14.5); WHITE BLOOD COUNT 5.5 10^3/ul (4.8-10.8)
[2017-01-08 05:57] LABS: ADD SCAN DIFF NO
[2017-01-08] MEDS: PANTOPRAZOLE (EC) 40 MG TAB PO SCH (06:00)
[2017-01-08 06:03] LABS: CALCIUM 8.1 mg/dl (8.4-10.2); CREATININE 1.63 mg/dl (0.61-1.24); POTASSIUM 3.7 mmol/L (3.5-5.1)
[2017-01-08] MEDS: CITRIC ACID/NA CITRATE 30 ML CUP PO SCH ×2 (08:16→13:30)
[2017-01-08] MEDS: POTASSIUM CHLORIDE (SR) 20 MEQ TAB PO SCH ×2 (08:16→13:28)
[2017-01-08] MEDS ORDERED: LIDOCAINE 1% (MDV) 20 ML INJ ONE (11:41)
[2017-01-08] MEDS ORDERED: SOD CHLORIDE 0.9% 500 ML ONE (11:41)
[2017-01-08] MEDS ORDERED: FENTAnyl 50 MCG/ML VIAL ONE (11:41)
[2017-01-08] MEDS ORDERED: MIDAZOLAM 1 MG/ML 2 ML INJ ONE (11:41)
[2017-01-08] MEDS ORDERED: IOHEXOL 300MG/ML 30 ML BTL ONE (12:05)
--- NOTE | 2017-01-08 12:37 | RADRPT ---
PROCEDURE: Ultrasound guidance for needle placement for left nephrostomy. CLINICAL INDICATION: Left hydronephrosis. TECHNIQUE: Informed consent was obtained. The procedure, risks, benefits, complications and alternatives were explained to the patient the patient's daughter. Risks including bleeding and infection were explain ed. The patient the patient's daughter understood and were willing to proceed. A procedural pause was performed. The patient's name, date of , and procedure to be performed w ere verified. Using local anesthetic, sterile technique and ultrasound guidance, a 19-gauge Yueh needle was advanc ed into a mid pole alexis in the left kidney. A 0.035 in guidewire was inserted. The remainder of t he study was performed with fluoroscopic guidance. The patient tolerated procedure well. COMPARISON: None. FINDINGS: The ultrasound images demonstrate the needle within a midpole posterior alexis of the left kidney. IMPRESSION: 1. Successful ultrasound guidance for placement of the needle in the mid pole posterior alexis of th e left kidney. RPTAT: QQ .Zachariah Ashley MD, MD Date Time Electronically viewed and signed by .Zachariah Ashley MD, on 01/08/2017 12:37 .R/
--- NOTE | 2017-01-08 12:40 | RADRPT ---
PROCEDURE: Ultrasound and fluoroscopic guided left nephrostomy. CLINICAL INDICATION: Left hydronephrosis. TECHNIQUE: Informed consent was obtained. The procedure, risks, benefits, complications and alternatives were explained to the patient and the patient's daughter. Risks including bleeding and infection were exp lained. The patient the patient has no other understood and were willing to proceed. A procedural pause was performed. The patient's name, date of , and procedure to be performed w ere verified. Using local anesthetic, sterile technique and ultrasound guidance, a 19-gauge Yueh needle was advanc ed into a posterior alexis in the mid left kidney. A 0.035 in guidewire was inserted. The Yeuh cath eter was removed. The tract was dilated to 8-Egyptian. An 8.5 Egyptian multipurpose drainage catheter was advanced over the guidewire into the renal pelvis with fluoroscopic guidance. The guidewire was removed. Additional contrast was injected confirming position. The catheter was then sutured to t he patient's skin with 2-0 silk. The catheter was connected to a drainage bag. A dressing was appl ied. The patient tolerated procedure well. COMPARISON: None. FINDINGS: The ultrasound images demonstrate the needle entering a left mid pole posterior alexis. The nephrost ogram demonstrates the nephrostomy tube in satisfactory position within the left renal pelvis. The left ureter is obstructed distally. IMPRESSION: 1. Successful ultrasound and fluoroscopic guided left nephrostomy. 2. The nephrostogram demonstrates the tube in satisfactory position within the left renal pelvis. 3. The left ureter is obstructed distally. RPTAT: QQ .Zachariah Ashley MD, MD Date Time Electronically viewed and signed by .Zachariah Ashley MD, MD on 01/08/2017 12:40 .R/
--- NOTE | 2017-01-08 13:29 | PN ---
Date/Time of Note Date/Time of Note DATE: 01/08/17 TIME: 13:26 Assessment/Plan VTE Prophylaxis VTE Prophylaxis Intervention: ambulation Lines/Catheters IV [facility] Urinary Cath still in place: No Assessment/Plan Chief Complaint/Hosp Course 1. Possible acute on chronic kidney disease. 2. Urinary tract infection. 3. Hyponatremia. 4. Metabolic acidosis. better 5. Dehydration. 6. Anemia. 7. hydronephrosis s/p nephrostomy Problems: Assessment/Plan 1. Possible discharge Subjective 24 Hr Interval Summary Constitutional: no complaints Neurologic: no complaints Exam/Review of Systems Vital Signs Vitals Vital Signs Date Time Temp Pulse Resp B/P Pulse Ox O2 Delivery O2 Flow Rate FiO2 01/08/17 07:45 98.8 79 19 110/64 99 01/06/17 13:35 Room Air Intake and Output 01/07/17 01/07/17 01/08/17 15:00 23:00 07:00 Intake Total 850 ml 200 ml Output Total 1100 ml 800 ml Balance -250 ml -600 ml Exam Constitutional: alert, oriented Respiratory: clear to auscultation Cardiovascular: regular rate and rhythm Gastrointestinal: soft Results Result Diagram: 01/08/17 0425 01/08/17 0425 Results 24 hrs Laboratory Tests Test 01/08/17 04:25 White Blood Count 5.5 Red Blood Count 3.21 L Hemoglobin 8.2 L Hematocrit 26.7 L Mean Corpuscular Volume 83.2 Mean Corpuscular Hemoglobin 25.5 L Mean Corpuscular Hemoglobin Concent 30.7 L Red Cell Distribution Width 19.3 H Platelet Count 219 # Mean Platelet Volume 9.4 Neutrophils % 56.3 Lymphocytes % 28.7 Monocytes % 7.6 Eosinophils % 6.7 Basophils % 0.5 Nucleated Red Blood Cells % 0.0 Neutrophils # 3.1 Lymphocytes # 1.6 Monocytes # 0.4 Eosinophils # 0.4 Basophils # 0.0 Nucleated Red Blood Cells # 0.0 Sodium Level 134 L Potassium Level 3.7 Chloride Level 98 Carbon Dioxide Level 32 H Anion Gap 8 Blood Urea Nitrogen 35 H Creatinine 1.63 H Glucose Level 92 Calcium Level 8.1 L Medications Medications Current Medications Ondansetron HCl (Zofran Inj) 4 mg Q6H PRN IV NAUSEA AND/OR VOMITING; Start at 19:30 Acetaminophen (Tylenol Tab) 650 mg Q6H PRN PO PAIN LEVEL 1-3 OR FEVER Last administered on 01/03/17 06:19; Admin Dose 650 MG; Start 12/29/16 at 19:30 Acetaminophen (Tylenol Supp) 650 mg Q6H PRN SD PAIN LEVEL 1-3 OR FEVER; Start 12/29/16 at 19:30 Morphine Sulfate (morphine) 2 mg Q4H PRN IV SEVERE PAIN LEVEL 7-10; Start 12/29 at 19:30 Docusate Sodium (Colace) 100 mg Q12H PRN PO CONSTIPATION; Start 12/29/16 at 19: 30 Magnesium Hydroxide (Milk Of Mag) 30 ml DAILY PRN PO CONSTIPATION; Start at 19:30 Bisacodyl (Dulcolax) 5 mg DAILY PRN PO CONSTIPATION; Start 12/29/16 at 19:30 Bisacodyl (Dulcolax Supp) 10 mg DAILY PRN SD CONSTIPATION; Start 12/29/16 at 19 :30 Zolpidem Tartrate (Ambien) 5 mg QHS PRN PO SLEEP; Start 12/29/16 at 19:30 Lorazepam (Ativan) 0.5 mg HS PO Last administered on 01/07/17 20:20; Admin Dose 0.5 MG; Start 12/29/16 at 22:15 Hydralazine HCl (Apresoline) 10 mg Q6H PRN IV SBP>155 Last administered on 01/03 08:16; Admin Dose 10 MG; Start 12/29/16 at 22:30 Pantoprazole (Protonix Tab) 40 mg DAILY@06 PO Last administered on 01/07/17 05: 38; Admin Dose 40 MG; Start 01/01/17 at 06:00 Citric Acid/ Sodium Citrate (Bicitra) 30 ml TID PO Last administered on 20:19; Admin Dose 30 ML; Start 01/01/17 at 13:00 Hydralazine HCl (Apresoline) 25 mg TID PO Last administered on 01/07/17 20:20; Admin Dose 25 MG; Start 01/03/17 at 21:00 Clonidine (Catapres) 0.1 mg Q6H PRN PO ELEVATED SYSTOLIC BP Last administered on 7/2/17at 22:19; Admin Dose 0.1 MG; Start 01/04/17 at 01:00 Potassium Chloride (Klor-Con 20) 20 meq BID PO Last administered on 01/07/17t 20 :20; Admin Dose 20 MEQ; Start 01/05/17 at 09:00 JESSICA MAYO Jan 08, 2017 13:29
--- NOTE | 2017-01-08 17:44 | PDOCDIS ---
Discharge Instructions CONDITION Patient Condition: Stable HOME CARE INSTRUCTIONS: Special Diet: RENAL DIET, WILL BE NPO AFTER MIDNIGHT ACTIVITY: Activity Restrictions: Slowly Increase Activity FOLLOW UP/APPOINTMENTS Follow-up Plan f/u own pcp 1 wk see urologist at [facility] or [facility] [place] by referral from own pcp MIKE Kulkarni MD Jan 08, 2017 17:44
[2017-01-08] MEDS ORDERED: HYDR-3671 PO (17:46)
[2017-01-08] MEDS ORDERED: PANT40TA4 PO (17:46)
[2017-01-08] MEDS ORDERED: CITR473S PO (17:46)
[2017-01-08] MEDS ORDERED: BISA5TAB6 PO (17:46)
[2017-01-08] MEDS ORDERED: DOCU-216 PO (17:46)
[2017-01-08] MEDS: ACETAMINOPHEN 325 MG TAB PO PRN (18:22)
== END 2017-01-08 18:50 | disposition home health service (06) | DRG 683 ==
LOC: E/R 11:26 → MS1 18:41
PROVIDERS: ADMIT Internal Medicine Nephrology; ATTEND Internal Medicine Nephrology
PROC: 0T9030Z Drainage of Right Kidney with Drainage Device, Percutaneous Approach (ICD-10-PCS; principal; 2017-01-03)
PROC: BT111ZZ Fluoroscopy of Right Kidney using Low Osmolar Contrast (ICD-10-PCS; 2017-01-03)
DX: N17.9 Acute kidney failure, unspecified (principal); E87.2 Acidosis; N39.0 Urinary tract infection, site not specified; E86.0 Dehydration; E87.1 Hypo-osmolality and hyponatremia; N28.89 Other specified disorders of kidney and ureter; N13.30 Unspecified hydronephrosis; N18.9 Chronic kidney disease, unspecified; D64.9 Anemia, unspecified; Z90.79 Acquired absence of other genital organ(s); Z93.6 Other artificial openings of urinary tract status
CPT/HCPCS: 71010; 74000; 74176; 74425; 74475; 75982; 76942; 80048; 80053; 81001; 83605; 84155; 84300; 85025; 85610; 85730; 87075; 89190; 96361; 96374; J1940; C9113; J0360; J0690; J2250; J3010; J7040; J7042; Q9967

== ENCOUNTER 2017-02-17 15:18 | Inpatient (IN) | payer OTHER ==
[~2017-02-17] VITALS: Ht 152.4 cm; Wt 55.1 kg
[~2017-02-17 15:18] MED LIST: BISA5TAB6 PO; CITR473S PO; DOCU-216 PO; HYDR-3671 PO; PANT40TA4 PO
[2017-02-17] MEDS ORDERED: SODIUM CHLORIDE 0.9% 1L BAG IV* STA (19:50)
[2017-02-17] MEDS ORDERED: PIPER-TAZO 3.375 GM IV (PMX) 100 ML IVPB ONE (20:00)
[2017-02-17] MEDS ORDERED: CEFTRIAXONE 1 GM/50 ML (PMX) 50 ML IVPB ONE (20:00)
[2017-02-17] MEDS ORDERED: IBUPROFEN 600 MG TAB PO ONE (20:00)
[2017-02-17] MEDS ORDERED: VANCOMYCIN 1 GM (PMX) 250 ML IVPB ONE (20:00)
[2017-02-17 20:21] LABS: BASOPHIL # 0.1 10^3/ul (0.0-0.1); BASOPHILS % 0.3 % (0.0-2.0); EOSINOPHILS % 0.1 % (0.0-7.0); HEMATOCRIT 31.3 % (42.0-52.0); LYMPHOCYTES # 1.9 10^3/ul (0.8-2.9); LYMPHOCYTES % 11.2 % (15.0-51.0); MEAN CORPUSCULAR HEMOGLOBIN 26.9 pg (29.0-33.0); MEAN CORPUSCULAR HGB CONC 31.9 g/dl (32.0-37.0); MEAN CORPUSCULAR VOLUME 84.1 fl (82.0-101.0); MEAN PLATELET VOLUME 8.5 fl (7.4-10.4); MONOCYTE # 1.1 10^3/ul (0.3-0.9); MONOCYTES % 6.3 % (0.0-11.0); NEUTROPHIL # 13.9 10^3/ul (1.6-7.5); NEUTROPHILS % 81.4 % (39.0-77.0); PLATELET COUNT 247 10^3/UL (140-415); RED BLOOD COUNT 3.72 10^6/ul (4.70-6.10); RED CELL DISTRIBUTION WIDTH 17.4 % (11.5-14.5); WHITE BLOOD COUNT 17.1 10^3/ul (4.8-10.8)
[2017-02-17 20:22] VITALS: TEMP 98.7
[2017-02-17 20:24] LABS: ADD UMIC YES; UR ASCORBIC ACID NEGATIVE (NEGATIVE); UR BACTERIA FEW /HPF (NONE SEEN); UR BILIRUBIN (Dip) NEGATIVE (NEGATIVE); UR BLOOD (Dip) NEGATIVE (NEGATIVE); UR CLARITY SLIGHTLY CLOUDY (CLEAR); UR COLOR YELLOW (YELLOW); UR GLUCOSE (Dip) NEGATIVE (NEGATIVE); UR KETONES (Dip) NEGATIVE (NEGATIVE); UR LEUKOCYTE ESTERASE (Dip) 3+ Leu/ul (NEGATIVE); UR NITRITE (Dip) POSITIVE (NEGATIVE); UR RBC 8 /HPF (0-5); UR SPECIFIC GRAVITY (Dip) 1.012 (1.003-1.030); UR TOTAL PROTEIN (Dip) 2+ mg/dl (NEGATIVE); UR UROBILINOGEN (Dip) NEGATIVE (NEGATIVE)
[2017-02-17 20:36] LABS: INR 1.13; PROTIME 14.5 Sec (12.2-14.2); PT RATIO 1.1
--- NOTE | 2017-02-17 20:36 | RADRPT ---
PROCEDURE: CT ABDOMEN AND PELVIS WITHOUT CONTRAST: CLINICAL INDICATION: 82 years of age, male. Abdominal pain. COMPARISON: December 29, 2016 TECHNIQUE: CT of the abdomen, and pelvis was performed without intravenous contrast. Oral contrast w as not administered prior to the examination. Coronal and sagittal reformatted images were obtained from the axial source images. Images were revi ewed on a high-resolution PACS workstation. Dose information: Based on a 32 cm phantom, the estimated radiation dose (CTDI vol mGy) for each ser ies in this exam is 5.5 . The estimated cumulative dose (DLP mGy-cm) is 278 . FINDINGS: In the absence of intravenous contrast, the study constitutes a limited assessment of the solid orga ns and vessels. LUNG BASES: Normal. ABDOMEN/PELVIS: Liver: Two hypodense liver lesions in medial segment 4 and segment 6 are unchanged and likely repres ent cysts. They measure up to 3.2 cm. There is a 1 cm hypodensity in segment 6/7 that is too small to characterize that is also unchanged (3/30). Gallbladder: Contracted and unremarkable. Bile ducts: No intrahepatic or extrahepatic biliary duct dilatation. Spleen: Normal. Pancreas: Focal fat in the pancreatic tail. Otherwise normal. Adrenal glands: Normal. Kidneys and ureters: In the interval since the previous exam, bilateral percutaneous nephrostomy cat heters have been placed and are in good position in bilateral pelves without evidence of complicatio ns. Previously identified marked bilateral hydronephrosis and hydroureter has resolved with minimal residual left pelvicaliectasis. Negative for calculi. Sub centimeter hypodensity superior pole ri ght kidney likely represents a cyst. Aorta and IVC: Atherosclerosis aorta. No aneurysm. Lymph nodes: Normal. Gastrointestinal tract: Large amount of colonic stool in keeping with constipation. Bowel loops are decompressed. Appendix: Not visualized Bladder: Status post cystectomy and right lower quadrant ileal conduit. Ileal conduit contains gas. Pelvic Organs: Prostate gland and seminal vesicles are not visualized and are presumed surgically ab sent. There are surgical clips in the pelvis. Peritoneal cavity: No free fluid or free intraperitoneal air. Abdominal wall: Postsurgical changes suprapubic anterior abdominal wall. BONES: Musculoskeletal: Multilevel degenerative changes in spine. No suspicious bone lesions. IMPRESSION: Status post placement of bilateral percutaneous nephrostomies in good position with resolved hydrone phrosis. Status post cystectomy and prostatectomy with right lower quadrant ileal conduit that contains gas. Although this may be due to catheterization, recommend clinical correlation to rule out urinary trac t infection. Moderate colonic stool in keeping with constipation. No other cause for abdominal pain is evident. 1 cm indeterminate hypodensity right hepatic lobe is unchanged from most recent prior exam. Recomme nd correlation with more remote previous exams. Two other liver lesions likely represent cysts and are stable. RPTAT: HCTS Physician Peg Date Time Electronically viewed and signed by Alicja Pritchard Physician on 02/17/2017 20:36 CS/
[2017-02-17 20:37] LABS: PARTIAL THROMBOPLASTIN TIME 29.3 Sec (25.0-35.0)
[2017-02-17 20:40] LABS: ALANINE AMINOTRANSFERASE 24 IU/L (13-69); ALBUMIN 4.4 g/dl (3.3-4.9); ALBUMIN/GLOBULIN RATIO 1.12; ALKALINE PHOSPHATASE 68 IU/L (42-121); ANION GAP 17 (8-16); ASPARTATE AMINO TRANSFERASE 19 IU/L (15-46); BILIRUBIN,INDIRECT 0.3 mg/dl (0-1.1); BILIRUBIN,TOTAL 0.3 mg/dl (0.2-1.3); BLOOD UREA NITROGEN 39 mg/dl (7-20); CALCIUM 9.1 mg/dl (8.4-10.2); CARBON DIOXIDE 24 mmol/L (21-31); CHLORIDE 99 mmol/L (97-110); CREATININE 1.68 mg/dl (0.61-1.24); GLUCOSE 159 mg/dl (70-220); POTASSIUM 4.1 mmol/L (3.5-5.1); SODIUM 136 mmol/L (135-144); TOTAL PROTEIN 8.3 g/dl (6.1-8.1)
--- NOTE | 2017-02-17 20:50 | RADRPT ---
PROCEDURE: Portable chest x-ray. CLINICAL INDICATION: 82-year-old male fever TECHNIQUE: Portable AP view of the chest. COMPARISON: None FINDINGS: Tortuous aorta. Normal heart size. Lungs are clear.. Negative for pleural effusion or pneumothorax.. No acute bony abnormality. There are percutaneous catheters in the projected over both upper quadrants of the abdomen. IMPRESSION: Negative for evidence of acute chest process. Negative for an infiltrate. RPTAT: HCTS Physician Peg Date Time Electronically viewed and signed by Physician Peg on 02/17/2017 20:49 CS/
[2017-02-17 21:00] LABS: TROPONIN-I < 0.012 ng/ml (0.00-0.12)
--- NOTE | 2017-02-17 21:38 | ERA ---
ER Documentation Chief Complaint Date/Time DATE: 02/17/17 TIME: 21:22 Chief Complaint fever, headache and strong urine smell x 2 days HPI 82-year-old man brought in by daughter for complaints of fever and headache 2 days. He has a history of prostatectomy with cystectomy and ileal conduit with bilateral nephrostomy tubes, daughter states his urine has been malodorous recently. He has had no vomiting or diarrhea, no complaints of abdominal pain, no chest pain or shortness of breath, no sore throat, no cough. No recent antibiotic use. ROS All systems reviewed and are negative except as per history of present illness. Medications Home Meds Active Scripts Hydralazine Hcl* (Hydralazine Hcl*) 25 Mg Tab, 25 MG PO TID for 28 Days, TAB Prov:MIKE TORREZ MD 01/08/17 Pantoprazole* (Pantoprazole*) 40 Mg Tablet.dr, 40 MG PO DAILY@06 for 28 Days Prov:MIKE TORREZ MD 01/08/17 Docusate Sodium (Dok) 100 Mg Capsule, 100 MG PO Q12H Y for CONSTIPATION for 28 Days, CAP Prov:MIKE TORREZ MD 01/08/17 Bisacodyl* (Bisacodyl*) 5 Mg Tablet.dr, 5 MG PO DAILY Y for CONSTIPATION for 28 Days Prov:MIKE TORREZ MD 01/08/17 Citric Acid/Sodium Citrate (Sod Citrate-Citric Acid Soln) 473 Ml Solution, 30 ML PO TID for 28 Days Prov:MIKE TORREZ MD 01/08/17 Allergies Allergies: Coded Allergies: No Known Allergy (Unverified , 12/29/16) PMhx/Soc prostatectomy and cystectomy with formation of an ileal conduit with bilateral nephrostomy tubes, hypertension Medical and Surgical Hx: pt denies Medical Hx, pt denies Surgical Hx History of Surgery: Yes (3 mo ago in [place] prostatectomy d/t CA) Anesthesia Reaction: No Hx Neurological Disorder: No Hx Respiratory Disorders: No Hx Cardiac Disorders: No Hx Psychiatric Problems: No Hx Miscellaneous Medical Probl: No Hx Alcohol Use: No Hx Substance Use: No Hx Tobacco Use: No Smoking Status: Never smoker FmHx Family History: No diabetes Physical Exam Vitals Vital Signs Date Time Temp Pulse Resp B/P Pulse Ox O2 Delivery O2 Flow Rate FiO2 02/17/17 20:22 98.7 78 20 128/60 98 Room Air 02/17/17 15:21 103.8 128 20 118/59 96 Physical Exam GENERAL: Well-developed, well-nourished, appears dehydrated, febrile HEENT: Dry mucous membranes, pink conjunctiva, no cervical spine tenderness or step-off deformities, no goiter, no jaundice or icterus, extraocular movements intact without pain. No submandibular induration, and no pharyngeal erythema NEURO: Alert and oriented 3, cranial nerves II through XII intact bilaterally, pupils equal round reactive to light, no focal deficits or facial asymmetry, sensation intact distally Strength 5/5 in upper and lower extremities bilaterally CARDIAC: Regular rate and rhythm, no murmurs rubs or gallops LUNGS: Clear bilaterally no wheezing crackles or stridor ABDOMEN: Soft nontender, no guarding, no rigidity, no rebound, no psoas sign no obturator sign. Normoactive bowel sounds SKIN: Warm and dry to touch, no abrasions, contusions, or hematomas, no lacerations, no ecchymosis, no target lesions, and without ulcers EXTREMITIES: No clubbing cyanosis or edema, calves are bilaterally symmetrical, no Homans sign, no popliteal cord sign. Distal pulses equal and bilateral PSYCH: Normal affect without agitation or irritability Result Diagram: 02/17/17200402/17/172004 Results 24 hrs Laboratory Tests Test 02/17/17 20:05 White Blood Count 17.110^3/ul Red Blood Count 3.7210^6/ul Hemoglobin 10.0g/dl Hematocrit 31.3% Mean Corpuscular Volume 84.1fl Mean Corpuscular Hemoglobin 26.9pg Mean Corpuscular Hemoglobin Concent 31.9g/dl Red Cell Distribution Width 17.4% Platelet Count 20294^3/UL Mean Platelet Volume 8.5fl Neutrophils % 81.4% Lymphocytes % 11.2% Monocytes % 6.3% Eosinophils % 0.1% Basophils % 0.3% Nucleated Red Blood Cells % 0.0/100WBC Neutrophils # 13.910^3/ul Lymphocytes # 1.910^3/ul Monocytes # 1.110^3/ul Eosinophils # 0.010^3/ul Basophils # 0.110^3/ul Nucleated Red Blood Cells # 0.010^3/ul Prothrombin Time 14.5Sec Prothrombin Time Ratio 1.1 INR International Normalized Ratio 1.13 Activated Partial Thromboplast Time 29.3Sec Urine Color YELLOW Urine Clarity SLIGHTLY CLOUDY Urine pH 9.0 Urine Specific [place] 1.012 Urine Ketones NEGATIVEmg/dL Urine Nitrite POSITIVEmg/dL Urine Bilirubin NEGATIVEmg/dL Urine Urobilinogen NEGATIVEmg/dL Urine Leukocyte Esterase 3+Natty/ul Urine Microscopic RBC 8/HPF Urine Microscopic WBC 8/HPF Urine Bacteria FEW/HPF Urine Hemoglobin NEGATIVEmg/dL Urine Glucose NEGATIVEmg/dL Urine Total Protein 2+mg/dl Sodium Level 136mmol/L Potassium Level 4.1mmol/L Chloride Level 99mmol/L Carbon Dioxide Level 24mmol/L Anion Gap 17 Blood Urea Nitrogen 39mg/dl Creatinine 1.68mg/dl Glucose Level 159mg/dl Lactic Acid Level 1.5mmol/L Calcium Level 9.1mg/dl Total Bilirubin 0.3mg/dl Direct Bilirubin 0.00mg/dl Indirect Bilirubin 0.3mg/dl Aspartate Amino Transf (AST/SGOT) 19IU/L Alanine Aminotransferase (ALT/SGPT) 24IU/L Alkaline Phosphatase 68IU/L Troponin I < 0.012ng/ml Total Protein 8.3g/dl Albumin 4.4g/dl Globulin 3.90g/dl Albumin/Globulin Ratio 1.12 Lipase 285U/L Current Medications Medications (Trade) Dose Ordered Sig/Tutu Route PRN Reason Start Time Stop Time Status Last Admin Dose Admin Sodium Chloride 2000 ml 2,000 ml BOLUS OVER 2 HOURS STAT IV* 02/17/17 19:50 02/17/17 19:55 DC 02/17/17 20:39 Vancomycin HCl 250 ml @ 125 mls/hr ONCE ONCE IVPB 02/17/17 20:00 02/17/17 21:59 Ceftriaxone Sodium 50 ml @ 100 mls/hr ONCE ONCE IVPB 02/17/17 20:00 02/17/17 20:29 DC 02/17/17 20:39 Piperacillin Sod/ Tazobactam Sod (Zosyn 3.375gm/ 100 ml (Pmx)) 100 ml @ 200 mls/hr ONCE ONCE IVPB 02/17/17 20:00 02/17/17 20:29 DC 02/17/17 20:49 Ibuprofen (Motrin) 600 mg ONCE ONCE PO 02/17/17 20:00 02/17/17 20:01 DC 02/17/17 20:50 Procedures/MDM IV line was established patient was placed on cardiac tech rhythm strip revealed a sinus rhythm at about 80 bpm with upright P and T waves. Patient was febrile. Blood and urine cultures were ordered results are pending I will follow-up. EKG performed, read by me: 80 bpm, normal sinus rhythm, normal axis, no acute ST segment changes, narrow QRS complex, with good R-wave progression in precordial leads. Chest X-ray 1V Interpreted by me: Soft Tissue: No acute abnormalities Bones: No acute abnormalities Mediastinum/Cardiac Silhouette/Lungs: No acute abnormalities CT scan of the abdomen and pelvis was performed there is no hydronephrosis and no acute inflammatory infectious pathology. Please refer to radiologist dictation for full report. I administered ibuprofen 600 mg p.o. for fever, 2 L normal saline intravenously for suspected sepsis and dehydration, ceftriaxone 1 g IV, vancomycin 1 g IV, and Zosyn 3.375 g IV 1. CBC reveals a leukocytosis of 17, electrolytes revealed dehydration and renal insufficiency with a BUN/creatinine of 39/1.7, liver function tests normal, troponin negative, lactic acid low at 1.5. Urine analysis positive for infection. Patient's infectious symptoms have not stabilized and the patient is at risk of rapid decompensation. The patient will be admitted for careful hydration, antibiotic therapy, and infectious source control. Severe Sepsis Assessment: Infectious Source: pyleonephritis Severe Sepsis Managment: Blood Cultures X 2 before broad spectrum antibiotics initiated within 3 hours of recognition. 30 ml/kg NS bolus Completed Initial Lactate: 1.5 Repeat Lactate not indicated as initial < 2.0 Critical Care: Time: 38 minutes, this was time separate from other billable procedures. Treatments/Evaluations: Emergent fluid management, while maintaining close respiratory support. Immediate broad spectrum antibiotic therapy. Simultaneous assessment for possible sources in order to direct therapy. Consideration for invasive and chemical support to prevent respiratory or cardiac collapse. Septic Shock Assessment (1 hour post 30 ml/kg fluid bolus): Hypotension (SBP < 90 or 40 mmHg drop, MAP < 65): No Lactic acid > 4.0 No Perfusion Reassessment for Septic Shock: Temp temp 98.8, pulse 80 bpm, respiratory rate 16 breaths per minute, blood pressure 140/80. Heart Exam: Regular rate rhythm Lung Exam: No Crackles Capillary Refill: Less than 2 seconds Peripheral Pulses: Radially present Skin: [place] and dry Hypotensive Treatment (not required for isolated lactic acid elevation): Comfort Care: No Central LIne: Not indicated Vasopressor started: None I considered further perfusion assessment with CVP measurement, SCVO2, bedside ultrasound volume assessment, passive leg raise, trial of further fluid bolus. And preceded with broad-spectrum IV antibiotics, IV fluids, and antipyretics. Accepting Care Team: Current data and ongoing care discussed. Time: Time of admission Primary Provider: Dr. Torrez Consulting: Infectious disease and urology, possible interventional radiology to replace bilateral nephrostomy tubes Outstanding Data: none Departure Diagnosis: Primary Impression: Sepsis Qualified Code: A41.9 - Sepsis, due to unspecified organism Additional Impressions: UTI (urinary tract infection) Qualified Code: N10 - Acute pyelonephritis Acute kidney injury Nephrostomy complication Dehydration Condition: CHRIS Martinez MD Feb 17, 2017 21:32
[2017-02-17 22:05] VITALS: Ht 152.4 cm; Wt 55.1 kg
[2017-02-17 22:37] VITALS: BP 139/83; RESP 19
[2017-02-18] MEDS ORDERED: VANCOMYCIN IV PER PHARMACY XX SCH
[2017-02-18] MEDS: ACETAMINOPHEN 325 MG TAB PO PRN (00:29)
[2017-02-18] MEDS: SOD CHLORIDE 0.9% 1,000 ML IV SCH ×3 (00:31→20:41)
[2017-02-18 02:17] VITALS: BP 103/51; RESP 18
[2017-02-18 06:43] VITALS: BP 100/50; RESP 18
[2017-02-18 07:52] VITALS: BP 105/57; RESP 17
[2017-02-18] MEDS: POLYETHYLENE GLYCOL 17 GM PACKET GTB SCH (15:31)
--- NOTE | 2017-02-18 16:29 | QN ---
Documentation Comment [id number] MIKE TORREZ MD Feb 18, 2017 16:29
[2017-02-18] MEDS ORDERED: BISACODYL (EC) 5 MG TAB PO PRN (17:00)
[2017-02-18] MEDS ORDERED: DOCUSATE SODIUM 100 MG CAP PO PRN (17:00)
[2017-02-18] MEDS: CITRIC ACID/NA CITRATE 30 ML CUP PO SCH (17:48)
[2017-02-18 19:15] VITALS: BP 177/78; RESP 18
[2017-02-18] MEDS: CEFTRIAXONE 1 GM/50 ML (PMX) 50 ML IVPB SCH (20:42)
[2017-02-19 02:05] VITALS: BP 152/69; RESP 18
[2017-02-19] MEDS: SOD CHLORIDE 0.9% 1,000 ML IV SCH ×2 (04:36→13:43)
[2017-02-19] MEDS: PANTOPRAZOLE (EC) 40 MG TAB PO SCH (05:27)
[2017-02-19 07:42] VITALS: BP 151/77; RESP 19
--- NOTE | 2017-02-19 08:38 | CONS ---
Date/Time of Note Date/Time of Note DATE: 02/19/17 TIME: 08:27 Assessment/Plan Assessment/Plan Chief Complaint/Hosp Course 82-year-old male who is status post cystectomy prostatectomy and ileal loop urinary diversion in September 2016 in [place] has bilateral nephrostomy tubes as there was no urine draining through the ileal loop urinary diversion and had bilateral hydronephrosis. A loopogram was done during his last admission and showed no reflux from the ileal loop into the ureters. He had bilateral hydronephrosis and because of that he did have insertion of bilateral nephrostomy tubes. The nephrostomy tubes are draining well and the urine is clear. The repeated CT scan done this time showed a hydronephrosis to have subsided. I will order a bilateral nephrostogram to see if the ureters are patent or they still blocked. Problems: Consultation Date/Type/Reason Admit Date/Time Feb 17, 2017 at 20:56 Date of Consultation: Feb 19, 2017 Type of Consultation: Urology Reason for Consultation Bilateral nephrostomy tubes Referring Provider: MIKE TORREZ Hx of Present Illness 82-year-old male status post radical cystectomy prostatectomy and ileal loop urinary diversion in September 2016. He presented to the hospital here 1 months earlier and was found to have hydronephrosis he underwent bilateral nephrostomy tube insertions. The patient comes back this time because of fever and headache. He still have the bilateral nephrostomy tubes and both of them are draining well. Constitutional: other (Patient had fever on admission) Eyes: no complaints ENT: no complaints Respiratory: no complaints Cardiovascular: no complaints Gastrointestinal: no complaints Genitourinary: other (Has bilateral nephrostomy tubes) Musculoskeletal: no complaints Skin: no complaints Neurologic: no complaints Endocrine: no complaints Lymphatic: no complaints Past Medical History Medical History: other (Radical cystectomy, prostatectomy, ileal loop urinary diversion, insertion of bilateral nephrostomy tubes) Past Surgical History Past Surgical Hx: other (Cystectomy, prostatectomy, ileal loop urinary diversion, bilateral nephrostomy tubes) Family History Significant Family History: no pertinent family hx Social History Alcohol Use: none Smoking Status: Former smoker Exam/Review of Systems Vital Signs Vitals Vital Signs Date Time Temp Pulse Resp B/P Pulse Ox O2 Delivery O2 Flow Rate FiO2 02/19/17 07:42 98.0 76 19 151/77 97 02/17/17 20:22 Room Air Intake and Output 02/18/17 02/18/17 02/19/17 15:00 23:00 07:00 Intake Total 250 ml 2250 ml 1090 ml Output Total 3000 ml 5400 ml Balance 250 ml -750 ml -4310 ml Exam Constitutional: alert, oriented Psych: no complaints Head: normocephalic Eyes: nl conjunctiva ENMT: nl external ears & nose Neck: non-tender, supple Respiratory: normal air movement Cardiovascular: nl pulses Gastrointestinal: other (Ileal loop urinary diversion that is not draining any urine), soft, surgical scars Genitourinary - Male: other (Bilateral nephrostomy tubes draining well) Musculoskeletal: nl extremities to inspection Extremities: No calf tenderness, No edema Skin: nl turgor Results CT scan of abdomen and pelvis: Status post placement of bilateral percutaneous nephrostomies in good position with resolved hydronephrosis. Status post cystectomy and prostatectomy with right lower quadrant ileal conduit that contains gas. Although this may be due to catheterization, recommend clinical correlation to rule out urinary tract infection. Moderate colonic stool in keeping with constipation. No other cause for abdominal pain is evident. 1 cm indeterminate hypodensity right hepatic lobe is unchanged from most recent prior exam. Recommend correlation with more remote previous exams. Two other liver lesions likely represent cysts and are stable. RPTAT: HCTS Alicja Pritchard Physician Date Time Electronically viewed and signed Result Diagram: 02/17/17200402/17/172004 Medications Medications Current Medications Sodium Chloride 1,000 ml @ 70 mls/hr [id number] IV Last administered on 20:41; Admin Dose 70 MLS/HR; Start 02/18/17 at 00:00 Ceftriaxone Sodium (Rocephin) 50 ml @ 100 mls/hr Q24H IVPB Last administered on 02/18/17 20:42; Admin Dose 100 MLS/HR; Start 02/18/17 at 21:00 Acetaminophen 650 mg 650 mg Q6H PRN PO PAIN AND OR ELEVATED TEMP Last administered on 02/18/17 00:29; Admin Dose 650 MG; Start 02/18/17 at 00:00 Vancomycin HCl (Vancocin) 250 ml @ 125 mls/hr Q36H IVPB ; Start 02/19/17 at 10: 00 Polyethylene Glycol (Miralax) 17 gm DAILY GTB Last administered on 02/18/17 15 :31; Admin Dose 17 GM; Start 02/18/17 at 15:30 Bisacodyl (Dulcolax) 5 mg DAILY PRN PO CONSTIPATION Last administered on 05:27; Admin Dose 5 MG; Start 02/18/17 at 17:00 Citric Acid/ Sodium Citrate (Bicitra) 30 ml TID PO Last administered on 17:48; Admin Dose 30 ML; Start 02/18/17 at 17:30 Docusate Sodium (Colace) 100 mg Q12H PRN PO CONSTIPATION Last administered on 20:57; Admin Dose 100 MG; Start 02/18/17 at 17:00 Pantoprazole (Protonix Tab) 40 mg DAILY@06 PO Last administered on 02/19/17 05 :27; Admin Dose 40 MG; Start 02/19/17 at 06:00 DOROTA BALDWIN MD Feb 19, 2017 08:38
[2017-02-19] MEDS: POLYETHYLENE GLYCOL 17 GM PACKET GTB SCH (08:55)
[2017-02-19] MEDS: CITRIC ACID/NA CITRATE 30 ML CUP PO SCH ×3 (08:56→20:51)
[2017-02-19] MEDS ORDERED: VANCOMYCIN 1 GM in NS 250 ML IVPB SCH ×2 (10:00→21:00)
--- NOTE | 2017-02-19 13:34 | HP ---
DATE OF ADMISSION: 02/17/2017 HISTORY OF PRESENT ILLNESS: The patient is an 82-year-old male who was previously discharged from this hospital with a diagnosis of obstructive uropathy and urinary tract infection. The patient has hydronephrosis, history of bilateral nephrostomy tube placement, past medical history of anemia, history of hyponatremia. The patient was supposed to follow up with [facility] or [facility] for further care for his bilateral nephrostomy tubes. The patient never went to [facility] or [facility], or currently to his PCP, but he has a referral to see Dr. rose] as an outpatient. Presented with fever and chills, per the patient, but no nausea, vomiting or abdominal pain. The patient is noted to have blood pressure 105/57 and temperature 98.5. The patient is going to be monitored for further management. PAST MEDICAL HISTORY: Positive for metabolic acidosis, positive for hypertension, bilateral nephrostomy tube placement, history of hydronephrosis. ALLERGIES: NEGATIVE. FAMILY HISTORY: Negative. SOCIAL HISTORY: Negative. MEDICATIONS: ], Bicitra, docusate sodium, hydralazine. REVIEW OF SYSTEMS: . abdomen with no nausea or abdominal pain. . PHYSICAL EXAMINATION: The patient is awake, alert, oriented. VITAL SIGNS: Blood pressure 139/83. HEENT: Head is atraumatic, normocephalic. Pupils equal. No apparent conjunctivitis. NECK: Supple. There is no JVD. LUNGS: Clear. CARDIAC: S1, S2 normal. ABDOMEN: The patient has ileostomy tubes noted bilaterally. The patient underwent nephrostomy tube placement. EXTREMITIES: There is no cyanosis, clubbing or edema. NEUROLOGIC: The patient is awake, alert, with no focal deficits. DATA: White blood cell count 1, hematocrit 31.2, platelet count 247. Sodium 136, potassium 4.1, BUN 39, creatinine 1.68. ]. IMPRESSION: 1. Sepsis. 2. Patient has bilateral nephrostomy tubes. History of past surgery of ileostomy tube placement. 3. The patient has underlying chronic kidney disease, anemia, metabolic acidosis. PLAN: Clear liquid diet. IV fluid. Symptomatic pain medication. The patient will have a urology consultation. has been notified to see this patient in consultation. Dictated By: Ryan Liriano MD /jairo/claudia /Document#: [id number] MTDD
[2017-02-19] MEDS ORDERED: IODIXANOL LOCM 100 ML BTL ONE (17:54)
[2017-02-19] MEDS ORDERED: SOD CHLORIDE 0.9% 500 ML ONE (17:54)
--- NOTE | 2017-02-19 19:46 | PN ---
Date/Time of Note Date/Time of Note DATE: 02/19/17 TIME: 19:45 Assessment/Plan VTE Prophylaxis VTE Prophylaxis Intervention: other Lines/Catheters IV Catheter Type (from [facility]): Peripheral IV Urinary Cath still in place: No Assessment/Plan Chief Complaint/Hosp Course 1. Sepsis. 2. Patient has bilateral nephrostomy tubes. History of past surgery of ileostomy tube placement. 3. The patient has underlying chronic kidney disease, anemia, metabolic acidosis. plan antibiotic per gu Problems: Subjective 24 Hr Interval Summary Respiratory: no complaints Cardiovascular: no complaints Genitourinary: No dysuria, No flank pain Exam/Review of Systems Vital Signs Vitals Vital Signs Date Time Temp Pulse Resp B/P Pulse Ox O2 Delivery O2 Flow Rate FiO2 02/19/17 07:42 98.0 76 19 151/77 97 02/17/17 20:22 Room Air Intake and Output 02/18/17 02/18/17 02/19/17 15:00 23:00 07:00 Intake Total 250 ml 2250 ml 1090 ml Output Total 3000 ml 5400 ml Balance 250 ml -750 ml -4310 ml Exam Respiratory: clear to auscultation Cardiovascular: regular rate and rhythm Gastrointestinal: soft Musculoskeletal: nl extremities to inspection Extremities: normal pulses Results Result Diagram: 02/17/17200402/17/172004 Medications Medications Current Medications Sodium Chloride 1,000 ml @ 70 mls/hr [id number] IV Last administered on 13:43; Admin Dose 70 MLS/HR; Start 02/18/17 at 00:00 Ceftriaxone Sodium (Rocephin) 50 ml @ 100 mls/hr Q24H IVPB Last administered on 02/18/17 20:42; Admin Dose 100 MLS/HR; Start 02/18/17 at 21:00 Acetaminophen 650 mg 650 mg Q6H PRN PO PAIN AND OR ELEVATED TEMP Last administered on 02/18/17 00:29; Admin Dose 650 MG; Start 02/18/17 at 00:00 Vancomycin HCl (Vancocin) 250 ml @ 125 mls/hr Q36H IVPB Last administered on 10:43; Admin Dose 125 MLS/HR; Start 02/19/17 at 10:00 Polyethylene Glycol (Miralax) 17 gm DAILY GTB Last administered on 02/19/17 08 :55; Admin Dose 17 GM; Start 02/18/17 at 15:30 Bisacodyl (Dulcolax) 5 mg DAILY PRN PO CONSTIPATION Last administered on 05:27; Admin Dose 5 MG; Start 02/18/17 at 17:00 Citric Acid/ Sodium Citrate (Bicitra) 30 ml TID PO Last administered on 13:41; Admin Dose 30 ML; Start 02/18/17 at 17:30 Docusate Sodium (Colace) 100 mg Q12H PRN PO CONSTIPATION Last administered on 20:57; Admin Dose 100 MG; Start 02/18/17 at 17:00 Pantoprazole (Protonix Tab) 40 mg DAILY@06 PO Last administered on 02/19/17 05 :27; Admin Dose 40 MG; Start 02/19/17 at 06:00 MIKE TORREZ MD Feb 19, 2017 19:46
[2017-02-19] MEDS: CEFTRIAXONE 1 GM/50 ML (PMX) 50 ML IVPB SCH (20:49)
[2017-02-19 20:59] VITALS: BP 135/82; RESP 19
[2017-02-19 21:01] VITALS: BP 141/71; RESP 19
[2017-02-19] MEDS: ACETAMINOPHEN 325 MG TAB PO PRN (23:57)
[2017-02-20 03:25] VITALS: BP 133/63; RESP 18
[2017-02-20 05:20] LABS: BASOPHILS % 0.3 % (0.0-2.0); EOSINOPHILS # 0.4 10^3/ul (0.0-0.5); EOSINOPHILS % 5.5 % (0.0-7.0); HEMATOCRIT 28.4 % (42.0-52.0); HEMOGLOBIN 9.3 g/dl (14.0-18.0); LYMPHOCYTES # 1.9 10^3/ul (0.8-2.9); LYMPHOCYTES % 26.6 % (15.0-51.0); MEAN CORPUSCULAR HEMOGLOBIN 26.9 pg (29.0-33.0); MEAN CORPUSCULAR HGB CONC 32.7 g/dl (32.0-37.0); MEAN CORPUSCULAR VOLUME 82.1 fl (82.0-101.0); MEAN PLATELET VOLUME 8.6 fl (7.4-10.4); MONOCYTE # 0.6 10^3/ul (0.3-0.9); NEUTROPHILS % 59.3 % (39.0-77.0); PLATELET COUNT 254 10^3/UL (140-415); RED BLOOD COUNT 3.46 10^6/ul (4.70-6.10); RED CELL DISTRIBUTION WIDTH 16.6 % (11.5-14.5); WHITE BLOOD COUNT 7.3 10^3/ul (4.8-10.8)
[2017-02-20] MEDS: PANTOPRAZOLE (EC) 40 MG TAB PO SCH (05:32)
[2017-02-20] MEDS: SOD CHLORIDE 0.9% 1,000 ML IV SCH ×3 (05:34→23:30)
[2017-02-20 05:49] LABS: ALBUMIN 3.3 g/dl (3.3-4.9); ALBUMIN/GLOBULIN RATIO 1.06; BILIRUBIN,INDIRECT 0.2 mg/dl (0-1.1); BILIRUBIN,TOTAL 0.2 mg/dl (0.2-1.3); CALCIUM 9.1 mg/dl (8.4-10.2); TOTAL PROTEIN 6.4 g/dl (6.1-8.1)
[2017-02-20] MEDS ORDERED: ALBUTEROL 0.5% (NEB) 2.5 MG/0.5 ML AMP ONE (07:00)
[2017-02-20 07:51] VITALS: BP 153/79; RESP 20
--- NOTE | 2017-02-20 08:04 | RADRPT ---
PROCEDURE: Bilateral nephrostogram CLINICAL INDICATION: Bilateral ureteral obstruction TECHNIQUE: Fluoroscopy time: 0.4 min Cuff Turner images demonstrates bilateral nephrostomy tubes. Contrast was injected and multiple fluoroscopic images were obtained over the abdomen and pelvis. COMPARISON: CT abdomen/pelvis from 02/17/2017 FINDINGS: The left nephrostomy is in place within the left renal collecting system. Contrast injected via the left nephrostomy demonstrates mild to moderate hydronephrosis and hydroureter. There is obstructio n of the distal left ureter preventing passage of contrast into the ileal conduit. The right nephrostomy is in place within the right renal collecting system. Contrast injected via t he right nephrostomy demonstrates moderate hydronephrosis and hydroureter. The right ureter is tort uous. No passage of contrast is noted into the ileal conduit. RPTAT: AA IMPRESSION: Moderate right and mild to moderate left hydronephrosis and hydroureter. Obstruction of bilateral ureters distally without evidence of passage of contrast into the ileal con duit. Physician Rossy Date Time Electronically viewed and signed by Physician Rossy on 02/20/2017 08:03 /
[2017-02-20] MEDS: CITRIC ACID/NA CITRATE 30 ML CUP PO SCH ×3 (08:21→21:15)
[2017-02-20] MEDS: POLYETHYLENE GLYCOL 17 GM PACKET GTB SCH (08:21)
[2017-02-20] MEDS ORDERED: MEROPENEM 1 GM/50ML(PMX) 50 ML IVPB SCH (09:00)
[2017-02-20] MEDS: MEROPENEM 1 GM in SOD CHLORIDE 0.9% 50 ML IVPB SCH ×3 (10:38→21:15)
[2017-02-20 14:31] VITALS: BP 126/61; RESP 20
--- NOTE | 2017-02-20 18:47 | PN ---
Date/Time of Note Date/Time of Note DATE: 02/20/17 TIME: 18:46 Assessment/Plan VTE Prophylaxis VTE Prophylaxis Intervention: other Lines/Catheters [facility] Type [facility] Peripheral IV Urinary Cath still in place: No Assessment/Plan Chief Complaint/Hosp Course 1. Sepsis.w ecoli esbl and proteus mirabilus 2. Patient has bilateral nephrostomy tubes. History of past surgery of ileostomy tube placement. 3. The patient has underlying chronic kidney disease, anemia, metabolic acidosis. plan antibiotic per gu Problems: Subjective 24 Hr Interval Summary Cardiovascular: no complaints Gastrointestinal: no complaints Exam/Review of Systems Vital Signs Vitals Vital Signs Date Time Temp Pulse Resp B/P Pulse Ox O2 Delivery O2 Flow Rate FiO2 02/20/17 14:31 98.4 79 20 126/61 98 02/17/17 20:22 Room Air Intake and Output 02/19/17 02/19/17 02/20/17 15:00 23:00 07:00 Intake Total 610 ml 1700 ml 1400 ml Output Total 5200 ml 5300 ml Balance 610 ml -3500 ml -3900 ml Exam Respiratory: clear to auscultation Cardiovascular: regular rate and rhythm Gastrointestinal: soft Musculoskeletal: nl extremities to inspection Extremities: normal pulses Results Result Diagram: 02/20/17 0448 02/20/17 0448 Results 24 hrs Laboratory Tests Test 02/20/17 04:48 White Blood Count 7.3 # Red Blood Count 3.46 L Hemoglobin 9.3 L Hematocrit 28.4 L Mean Corpuscular Volume 82.1 Mean Corpuscular Hemoglobin 26.9 L Mean Corpuscular Hemoglobin Concent 32.7 Red Cell Distribution Width 16.6 H Platelet Count 254 Mean Platelet Volume 8.6 Neutrophils % 59.3 Lymphocytes % 26.6 Monocytes % 8.0 Eosinophils % 5.5 Basophils % 0.3 Nucleated Red Blood Cells % 0.0 Neutrophils # (Manual) 4.3 Lymphocytes # 1.9 Monocytes # 0.6 Eosinophils # 0.4 Basophils # 0.0 Nucleated Red Blood Cells # 0.0 Sodium Level 138 Potassium Level 4.0 Chloride Level 105 Carbon Dioxide Level 26 Anion Gap 11 Blood Urea Nitrogen 19 Creatinine 1.00 Glucose Level 89 Calcium Level 9.1 Total Bilirubin 0.2 Direct Bilirubin 0.00 Indirect Bilirubin 0.2 Aspartate Amino Transf (AST/SGOT) 18 Alanine Aminotransferase (ALT/SGPT) 24 Alkaline Phosphatase 57 Total Protein 6.4 Albumin 3.3 Globulin 3.10 Albumin/Globulin Ratio 1.06 Medications Medications Current Medications Sodium Chloride (NS) 1,000 ml @ 70 mls/hr [id number] IV Last administered on 02/20 05:34; Admin Dose 70 MLS/HR; Start 02/18/17 at 00:00 Acetaminophen (Tylenol Tab) 650 mg Q6H PRN PO PAIN AND OR ELEVATED TEMP Last administered on 02/19/17 23:57; Admin Dose 650 MG; Start 02/18/17 at 00:00 Polyethylene Glycol (Miralax) 17 gm DAILY GTB Last administered on 02/20/17 08 :21; Admin Dose 17 GM; Start 02/18/17 at 15:30 Bisacodyl (Dulcolax) 5 mg DAILY PRN PO CONSTIPATION Last administered on 05:27; Admin Dose 5 MG; Start 02/18/17 at 17:00 Citric Acid/ Sodium Citrate (Bicitra) 30 ml TID PO Last administered on 14:18; Admin Dose 30 ML; Start 02/18/17 at 17:30 Docusate Sodium (Colace) 100 mg Q12H PRN PO CONSTIPATION Last administered on 20:57; Admin Dose 100 MG; Start 02/18/17 at 17:00 Pantoprazole 40 mg 40 mg DAILY@06 PO Last administered on 02/20/17 05:32; Admin Dose 40 MG; Start 02/19/17 at 06:00 Meropenem/Sodium Chloride (Merrem/NS) 50 ml @ 100 mls/hr Q8 IVPB Last administered on 02/20/17 14:18; Admin Dose 100 MLS/HR; Start 02/20/17 at 10:45 MIKE TORREZ MD Feb 20, 2017 18:46
[2017-02-20 20:16] VITALS: BP 181/81; RESP 18
[2017-02-21] MEDS: ZOLPIDEM 5 MG TAB PO PRN (00:06)
[2017-02-21 02:43] VITALS: BP 171/71; RESP 18
[2017-02-21] MEDS: PANTOPRAZOLE (EC) 40 MG TAB PO SCH (05:35)
[2017-02-21] MEDS: MEROPENEM 1 GM in SOD CHLORIDE 0.9% 50 ML IVPB SCH (05:36)
[2017-02-21] MEDS ORDERED: CIPROFLOXACIN 500 MG TAB NGT SCH (06:00)
[2017-02-21] MEDS ORDERED: DIPHENHYDRAMINE 50 MG INJ ONE (06:09)
[2017-02-21] MEDS ORDERED: METHYLPREDNISOLONE 125 MG INJ ONE (06:22)
[2017-02-21] MEDS ORDERED: ALBUTEROL 0.083% (NEB) 2.5 MG/3 ML AMP HHN STA (06:28)
[2017-02-21] MEDS ORDERED: DIPHENHYDRAMINE 50 MG INJ IV ONE (06:30)
[2017-02-21] MEDS ORDERED: METHYLPREDNISOLONE 125 MG INJ IV ONE (06:30)
[2017-02-21 08:00] VITALS: BP 184/85; RESP 19
[2017-02-21] MEDS ORDERED: DIPHENHYDRAMINE 25 MG CAP PO PRN (09:30)
[2017-02-21] MEDS: CITRIC ACID/NA CITRATE 30 ML CUP PO SCH ×3 (10:05→21:13)
[2017-02-21] MEDS: POLYETHYLENE GLYCOL 17 GM PACKET GTB SCH (10:05)
[2017-02-21] MEDS: METHYLPREDNISOLONE 125 MG INJ IV SCH (10:05)
--- NOTE | 2017-02-21 10:21 | PQ ---
Date/Time of Note Date/Time of Note DATE: 02/21/17 TIME: 10:[address] Liriano , A review of the medical record found a need for documentation clarification. patient admitted with sepsis and UTI, patient has bilateral nephrostomy tubes which according to documentation he was supposed to follow up to care for but never did. patient's nephrostogram showed bilateral obstruction in both ureters. Please specify if there is a relation between sepsis, UTI and the obstructed nephrostomy tubes. Please clarify a diagnosis being treated. To facilitate accurate and complete coding, please brandon ( x ) the suspected diagnosis that apply: ( ) Sepsis due to blocked nephrostomy tubes ( ) sepsis due to Other ( ) Other ( ) Clinically undetermined Please provide your response by clicking edit document,~ making~ your choice ( x ), click ok/save and finally click sign. You may also~ document your response~ on~ your progress notes. Thank you for your time. Melia LOCK,CCS,CCDS Clinical [employer] Professor Health Information Management, [employer] and Coding Services [phone] Room # [id number] - [address]~ [id number] MELIA SARKAR Feb 21, 2017 10:21
[2017-02-21 14:00] VITALS: BP 132/65; RESP 19
[2017-02-21] MEDS ORDERED: MEROPENEM 1 GM/50ML(PMX) 50 ML IVPB SCH (14:00)
[2017-02-21] MEDS: SOD CHLORIDE 0.9% 1,000 ML IV SCH (14:21)
[2017-02-21] MEDS ORDERED: TOBRAMYCIN IV PER PHARMACY XX SCH (16:00)
--- NOTE | 2017-02-21 18:48 | PN ---
Date/Time of Note Date/Time of Note DATE: 02/21/17 TIME: 18:26 Assessment/Plan VTE Prophylaxis VTE Prophylaxis Intervention: ambulation Lines/Catheters IV Catheter Type (from [facility]): Peripheral IV Urinary Cath still in place: No Assessment/Plan Chief Complaint/Hosp Course 82-year-old male who is status post cystectomy prostatectomy and ileal loop urinary diversion in September 2016 in [place] has bilateral nephrostomy tubes. There is no urine draining through the ileal loop urinary diversion . Pt has bilateral hydronephrosis. A loopogram was done during his last admission and showed no reflux from the ileal loop into the ureters. He had bilateral hydronephrosis and because of that he did have insertion of bilateral nephrostomy tubes. The nephrostomy tubes are draining well and the urine is clear. The repeated CT scan done this time showed a hydronephrosis to have subsided. Bilateral nephrostogram: Moderate right and mild to moderate left hydronephrosis and hydroureter. Obstruction of bilateral ureters distally without evidence of passage of contrast into the ileal conduit. _ The patient needs referral to either [facility] or [facility] to have an intervention where the ureters are reconnected to the ileal loop or if on the left side balloon dilatation could be done to the opening of the ureter into the ileal loop but on the right side the obstruction is not at the ureteroileal anastomosis it appears to be about 10 cm higher and that may require reimplantation of the ureter if it could reach the ileal loop. Problems: Subjective 24 Hr Interval Summary Constitutional: no complaints, other (Patient had an allergic reaction this morning to the Cipro. Rapid response team was called and patient was given Solu -Medrol and got better) Eyes: no complaints ENT: no complaints Respiratory: no complaints Cardiovascular: no complaints Gastrointestinal: no complaints Genitourinary: other (Bilateral nephrostomy tubes in place) Musculoskeletal: no complaints Skin: no complaints Neurologic: no complaints Endocrine: no complaints Psychological: no complaints Immunologic: other (Allergic reaction to Cipro this morning) Exam/Review of Systems Vital Signs Vitals Vital Signs Date Time Temp Pulse Resp B/P Pulse Ox O2 Delivery O2 Flow Rate FiO2 02/21/17 14:00 98.0 83 19 132/65 98 02/21/17 07:25 Non Rebreather 10.0 Intake and Output 02/20/17 02/20/17 02/21/17 15:00 23:00 07:00 Intake Total 100 ml 2620 ml 840 ml Output Total 1925 ml 1600 ml Balance 100 ml 695 ml -760 ml Exam Constitutional: alert, oriented (Patient sitting on the chair and having his dinner) Psych: no complaints Head: normocephalic Eyes: nl conjunctiva ENMT: nl external ears & nose Neck: non-tender, supple Respiratory: normal air movement Cardiovascular: nl pulses Gastrointestinal: other (The ileal loop stoma is not draining any urine.), soft Genitourinary - Male: other (Bilateral nephrostomy tubes draining large amount of urine and the urine is clear) Extremities: normal pulses, No calf tenderness, No edema Skin: nl turgor Results Bilateral nephrostograms: Moderate right and mild to moderate left hydronephrosis and hydroureter. Obstruction of bilateral ureters distally without evidence of passage of contrast into the ileal conduit. Jose D Parker, Physician Date Time It appears on the left side the ureter does reach the ileal loop but does not drain into it. On the right side the obstruction is much higher and is about 10 cm short of where the ileal loop is Result Diagram: 02/20/178 02/20/17 0448 Medications Medications Current Medications Sodium Chloride (NS) 1,000 ml @ 70 mls/hr [id number] IV Last administered on 02/21 14:21; Admin Dose 70 MLS/HR; Start 02/18/17 at 00:00 Acetaminophen (Tylenol Tab) 650 mg Q6H PRN PO PAIN AND OR ELEVATED TEMP Last administered on 02/19/17 23:57; Admin Dose 650 MG; Start 02/18/17 at 00:00 Polyethylene Glycol (Miralax) 17 gm DAILY GTB Last administered on 02/21/17 10 :05; Admin Dose 17 GM; Start 02/18/17 at 15:30 Bisacodyl (Dulcolax) 5 mg DAILY PRN PO CONSTIPATION Last administered on 05:27; Admin Dose 5 MG; Start 02/18/17 at 17:00 Citric Acid/ Sodium Citrate (Bicitra) 30 ml TID PO Last administered on 14:20; Admin Dose 30 ML; Start 02/18/17 at 17:30 Docusate Sodium (Colace) 100 mg Q12H PRN PO CONSTIPATION Last administered on 20:57; Admin Dose 100 MG; Start 02/18/17 at 17:00 Pantoprazole (Protonix Tab) 40 mg DAILY@06 PO Last administered on 02/21/17 05 :35; Admin Dose 40 MG; Start 02/19/17 at 06:00 Zolpidem Tartrate (Ambien) 5 mg HS PRN PO INSOMNIA Last administered on 00:06; Admin Dose 5 MG; Start 02/20/17 at 23:30 Methylprednisolone Sodium Succinate (Solu-Medrol) 80 mg QAM IV Last administered on 02/21/17 10:05; Admin Dose 80 MG; Start 02/21/17 at 09:30; Stop 02/23/17 at 09:29 Diphenhydramine HCl (Benadryl) 25 mg Q6H PRN PO ITCHING; Start 02/21/17 at 09: 30 Hydralazine HCl 10 mg 10 mg Q6H PRN IV ELEVATED BLOOD PRESSURE; Start 02/21/17 at 09:30 Cefepime HCl (Maxipime 1gm/50 ml (Pmx)) 50 ml @ 100 mls/hr Q12 IVPB ; Start at 21:00 DOROTA BALDWIN MD Feb 21, 2017 18:48
[2017-02-21 20:50] VITALS: BP 171/80; RESP 20
[2017-02-21] MEDS: CEFEPIME 1GM/50 ML IVPB SCH (21:14)
--- NOTE | 2017-02-21 21:19 | PN ---
Date/Time of Note Date/Time of Note DATE: 02/21/17 TIME: 21:18 Assessment/Plan VTE Prophylaxis VTE Prophylaxis Intervention: other Lines/Catheters IV [facility]ter Type (from [facility]): Peripheral IV Urinary Cath still in place: No Assessment/Plan Chief Complaint/Hosp Course 1. Sepsis.w ecoli esbl and proteus mirabilus 2. Patient has bilateral nephrostomy tubes. History of past surgery of ileostomy tube placement. 3. The patient has underlying chronic kidney disease, anemia, metabolic acidosis. 4 cipro allergy plan antibiotic per gu Problems: Subjective 24 Hr Interval Summary Subjective hx not possible: other (s/p cipro allergy better now) Exam/Review of Systems Vital Signs Vitals Vital Signs Date Time Temp Pulse Resp B/P Pulse Ox O2 Delivery O2 Flow Rate FiO2 02/21/17 20:50 98.6 77 20 171/80 96 02/21/17 07:25 Non Rebreather 10.0 Intake and Output 02/20/17 02/20/17 02/21/17 15:00 23:00 07:00 Intake Total 100 ml 2620 ml 840 ml Output Total 1925 ml 1600 ml Balance 100 ml 695 ml -760 ml Exam Respiratory: clear to auscultation Cardiovascular: regular rate and rhythm Gastrointestinal: soft Musculoskeletal: nl extremities to inspection Extremities: normal pulses Results Result Diagram: 02/20/178 02/20/17 044 Medications Medications Current Medications Sodium Chloride (NS) 1,000 ml @ 70 mls/hr [id number] IV Last administered on 02/21 14:21; Admin Dose 70 MLS/HR; Start 02/18/17 at 00:00 Acetaminophen (Tylenol Tab) 650 mg Q6H PRN PO PAIN AND OR ELEVATED TEMP Last administered on 02/19/17 23:57; Admin Dose 650 MG; Start 02/18/17 at 00:00 Polyethylene Glycol (Miralax) 17 gm DAILY GTB Last administered on 02/21/17 10 :05; Admin Dose 17 GM; Start 02/18/17 at 15:30 Bisacodyl (Dulcolax) 5 mg DAILY PRN PO CONSTIPATION Last administered on 05:27; Admin Dose 5 MG; Start 02/18/17 at 17:00 Citric Acid/ Sodium Citrate (Bicitra) 30 ml TID PO Last administered on 21:13; Admin Dose 30 ML; Start 02/18/17 at 17:30 Docusate Sodium (Colace) 100 mg Q12H PRN PO CONSTIPATION Last administered on 20:57; Admin Dose 100 MG; Start 02/18/17 at 17:00 Pantoprazole (Protonix Tab) 40 mg DAILY@06 PO Last administered on 02/21/17 05 :35; Admin Dose 40 MG; Start 02/19/17 at 06:00 Zolpidem Tartrate (Ambien) 5 mg HS PRN PO INSOMNIA Last administered on 00:06; Admin Dose 5 MG; Start 02/20/17 at 23:30 Methylprednisolone Sodium Succinate (Solu-Medrol) 80 mg QAM IV Last administered on 02/21/17 10:05; Admin Dose 80 MG; Start 02/21/17 at 09:30; Stop 02/23/17 at 09:29 Diphenhydramine HCl (Benadryl) 25 mg Q6H PRN PO ITCHING; Start 02/21/17 at 09: 30 Hydralazine HCl 10 mg 10 mg Q6H PRN IV ELEVATED BLOOD PRESSURE; Start 02/21/17 at 09:30 Cefepime HCl (Maxipime 1gm/50 ml (Pmx)) 50 ml @ 100 mls/hr Q12 IVPB Last administered on 02/21/17 21:14; Admin Dose 100 MLS/HR; Start 02/21/17 at 21:00 MIKE TORREZ MD Feb 21, 2017 21:19
[2017-02-22] VITALS (7 sets, daily range): BP systolic 137–213; BP diastolic 63–92; PULSE 70–74; RESP 18–20
[2017-02-22] MEDS: SOD CHLORIDE 0.9% 1,000 ML IV SCH ×2 (03:13→17:09)
[2017-02-22] MEDS: PANTOPRAZOLE (EC) 40 MG TAB PO SCH (06:16)
[2017-02-22] MEDS: METHYLPREDNISOLONE 125 MG INJ IV SCH (08:18)
[2017-02-22] MEDS: hydrALAzine 20 MG INJ IV PRN ×2 (08:30→20:44)
[2017-02-22] MEDS: CITRIC ACID/NA CITRATE 30 ML CUP PO SCH ×3 (09:25→20:46)
[2017-02-22] MEDS: CEFEPIME 1GM/50 ML IVPB SCH ×2 (09:25→20:45)
[2017-02-22] MEDS: POLYETHYLENE GLYCOL 17 GM PACKET GTB SCH (09:25)
--- NOTE | 2017-02-22 19:13 | PN ---
Date/Time of Note Date/Time of Note DATE: 02/22/17 TIME: 19:12 Assessment/Plan VTE Prophylaxis VTE Prophylaxis Intervention: other Lines/Catheters IV [facility]ter Type (from [facility]): Peripheral IV Urinary Cath still in place: No Assessment/Plan Chief Complaint/Hosp Course 1. Sepsis.w ecoli esbl and proteus mirabilus 2. Patient has bilateral nephrostomy tubes. History of past surgery of ileostomy tube placement. 3. The patient has underlying chronic kidney disease, anemia, metabolic acidosis. 4 cipro allergy 5 mi r/o plan antibiotic per gu Problems: Subjective 24 Hr Interval Summary Cardiovascular: no complaints, other (s/p atypical cp) Gastrointestinal: no complaints Exam/Review of Systems Vital Signs Vitals Vital Signs Date Time Temp Pulse Resp B/P Pulse Ox O2 Delivery O2 Flow Rate FiO2 02/22/17 15:40 98.7 65 20 140/65 97 02/22/17 10:19 Nasal Cannula 2.0 Intake and Output 02/21/17 02/21/17 02/22/17 15:00 23:00 07:00 Intake Total 800 ml 1420 ml Output Total 3000 ml 1300 ml Balance -2200 ml 120 ml Exam Neck: supple Respiratory: clear to auscultation Cardiovascular: regular rate and rhythm Gastrointestinal: soft Musculoskeletal: nl extremities to inspection Extremities: normal pulses Results Result Diagram: 02/20/178 02/20/17 044 Results 24 hrs Laboratory Tests Test 02/22/17 08:48 02/22/17 15:58 Troponin I < 0.012 < 0.012 Medications Medications Current Medications Sodium Chloride (NS) 1,000 ml @ 70 mls/hr [id number] IV Last administered on 02/22 17:09; Admin Dose 70 MLS/HR; Start 02/18/17 at 00:00 Acetaminophen (Tylenol Tab) 650 mg Q6H PRN PO PAIN AND OR ELEVATED TEMP Last administered on 02/19/17 23:57; Admin Dose 650 MG; Start 02/18/17 at 00:00 Polyethylene Glycol (Miralax) 17 gm DAILY GTB Last administered on 02/22/17 09 :25; Admin Dose 17 GM; Start 02/18/17 at 15:30 Bisacodyl (Dulcolax) 5 mg DAILY PRN PO CONSTIPATION Last administered on 05:27; Admin Dose 5 MG; Start 02/18/17 at 17:00 Citric Acid/ Sodium Citrate (Bicitra) 30 ml TID PO Last administered on 13:59; Admin Dose 30 ML; Start 02/18/17 at 17:30 Docusate Sodium (Colace) 100 mg Q12H PRN PO CONSTIPATION Last administered on 20:57; Admin Dose 100 MG; Start 02/18/17 at 17:00 Pantoprazole (Protonix Tab) 40 mg DAILY@06 PO Last administered on 02/22/17 06 :16; Admin Dose 40 MG; Start 02/19/17 at 06:00 Zolpidem Tartrate (Ambien) 5 mg HS PRN PO INSOMNIA Last administered on 00:06; Admin Dose 5 MG; Start 02/20/17 at 23:30 Methylprednisolone Sodium Succinate (Solu-Medrol) 80 mg QAM IV Last administered on 02/22/17 08:18; Admin Dose 80 MG; Start 02/21/17 at 09:30; Stop 02/23/17 at 09:29 Diphenhydramine HCl (Benadryl) 25 mg Q6H PRN PO ITCHING; Start 02/21/17 at 09: 30 Hydralazine HCl 10 mg 10 mg Q6H PRN IV ELEVATED BLOOD PRESSURE Last administered on 02/22/17 08:30; Admin Dose 10 MG; Start 02/21/17 at 09:30 Cefepime HCl (Maxipime 1gm/50 ml (Pmx)) 50 ml @ 100 mls/hr Q12 IVPB Last administered on 02/22/17 09:25; Admin Dose 100 MLS/HR; Start 02/21/17 at 21:00 MIKE TORREZ MD Feb 22, 2017 19:13
--- NOTE | 2017-02-22 20:04 | PN ---
Date/Time of Note Date/Time of Note DATE: 02/22/17 TIME: 19:59 Assessment/Plan VTE Prophylaxis VTE Prophylaxis Intervention: ambulation Lines/Catheters IV Catheter Type (from [email or web address] Peripheral IV Urinary Cath still in place: No Assessment/Plan Chief Complaint/Hosp Course 82-year-old male who is status post cystectomy prostatectomy and ileal loop urinary diversion in September 2016 in [place], has bilateral nephrostomy tubes. There is no urine draining through the ileal loop . Pt had bilateral hydronephrosis. A loopogram was done during his last admission and showed no reflux from the ileal loop into the ureters. He had bilateral hydronephrosis and because of that he did have insertion of bilateral nephrostomy tubes. The nephrostomy tubes are draining well and the urine is clear. The repeated CT scan done this time showed the hydronephrosis to have subsided. Bilateral nephrostogram done: Moderate right and mild to moderate left hydronephrosis and hydroureter. Obstruction of bilateral ureters distally without evidence of passage of contrast into the ileal conduit. _ The patient needs referral to either [facility] or [facility] to have an intervention where the ureters are reconnected to the ileal loop or if on the left side balloon dilatation could be done to the opening of the ureter into the ileal loop but on the right side the obstruction is not at the ureteroileal anastomosis it appears to be about 10 cm higher and that may require reimplantation of the ureter if it could reach the ileal loop. Problems: Subjective 24 Hr Interval Summary Constitutional: no complaints Eyes: no complaints Respiratory: no complaints Cardiovascular: no complaints Gastrointestinal: no complaints Genitourinary: other (Patient has bilateral nephrostomy tubes that are draining well, the urostomy is not draining any urine) Musculoskeletal: no complaints Skin: no complaints Endocrine: no complaints Exam/Review of Systems Vital Signs Vitals Vital Signs Date Time Temp Pulse Resp B/P Pulse Ox O2 Delivery O2 Flow Rate FiO2 02/22/17 15:40 98.7 65 20 140/65 97 02/22/17 10:19 Nasal Cannula 2.0 Intake and Output 02/21/17 02/21/17 02/22/17 15:00 23:00 07:00 Intake Total 800 ml 1420 ml Output Total 3000 ml 1300 ml Balance -2200 ml 120 ml Exam Constitutional: alert Psych: no complaints Head: normocephalic Eyes: nl conjunctiva ENMT: nl external ears & nose Neck: supple Respiratory: normal air movement Cardiovascular: No edema Gastrointestinal: soft Genitourinary - Male: other (Bilateral nephrostomy tubes, urine is clear, good output) Extremities: No calf tenderness, No edema Results Result Diagram: 02/20/178 02/20/17447 Results 24 hrs Laboratory Tests Test 02/22/17 08:48 02/22/17 15:58 Troponin I < 0.012 < 0.012 Medications Medications Current Medications Sodium Chloride (NS) 1,000 ml @ 70 mls/hr [id number] IV Last administered on 02/22 17:09; Admin Dose 70 MLS/HR; Start 02/18/17 at 00:00 Acetaminophen (Tylenol Tab) 650 mg Q6H PRN PO PAIN AND OR ELEVATED TEMP Last administered on 02/19/17 23:57; Admin Dose 650 MG; Start 02/18/17 at 00:00 Polyethylene Glycol (Miralax) 17 gm DAILY GTB Last administered on 02/22/17 09 :25; Admin Dose 17 GM; Start 02/18/17 at 15:30 Bisacodyl (Dulcolax) 5 mg DAILY PRN PO CONSTIPATION Last administered on 05:27; Admin Dose 5 MG; Start 02/18/17 at 17:00 Citric Acid/ Sodium Citrate (Bicitra) 30 ml TID PO Last administered on 13:59; Admin Dose 30 ML; Start 02/18/17 at 17:30 Docusate Sodium (Colace) 100 mg Q12H PRN PO CONSTIPATION Last administered on 20:57; Admin Dose 100 MG; Start 02/18/17 at 17:00 Pantoprazole (Protonix Tab) 40 mg DAILY@06 PO Last administered on 02/22/17 06 :16; Admin Dose 40 MG; Start 02/19/17 at 06:00 Zolpidem Tartrate (Ambien) 5 mg HS PRN PO INSOMNIA Last administered on 00:06; Admin Dose 5 MG; Start 02/20/17 at 23:30 Methylprednisolone Sodium Succinate (Solu-Medrol) 80 mg QAM IV Last administered on 02/22/17 08:18; Admin Dose 80 MG; Start 02/21/17 at 09:30; Stop 02/23/17 at 09:29 Diphenhydramine HCl (Benadryl) 25 mg Q6H PRN PO ITCHING; Start 02/21/17 at 09: 30 Hydralazine HCl 10 mg 10 mg Q6H PRN IV ELEVATED BLOOD PRESSURE Last administered on 02/22/17 08:30; Admin Dose 10 MG; Start 02/21/17 at 09:30 Cefepime HCl (Maxipime 1gm/50 ml (Pmx)) 50 ml @ 100 mls/hr Q12 IVPB Last administered on 02/22/17 09:25; Admin Dose 100 MLS/HR; Start 02/21/17 at 21:00 DOROTA BALDWIN MD Feb 22, 2017 20:04
[2017-02-22] MEDS: ACETAMINOPHEN 325 MG TAB PO PRN (20:44)
[2017-02-22] MEDS: ZOLPIDEM 5 MG TAB PO PRN (22:56)
[2017-02-23 01:31] VITALS: BP 139/68; RESP 20
[2017-02-23] MEDS: PANTOPRAZOLE (EC) 40 MG TAB PO SCH (06:25)
[2017-02-23 07:00] VITALS: BP 178/80; RESP 20
[2017-02-23] MEDS: METHYLPREDNISOLONE 125 MG INJ IV SCH (09:21)
[2017-02-23] MEDS: SOD CHLORIDE 0.9% 1,000 ML IV SCH (09:21)
[2017-02-23] MEDS: CITRIC ACID/NA CITRATE 30 ML CUP PO SCH ×2 (09:21→13:15)
[2017-02-23] MEDS: POLYETHYLENE GLYCOL 17 GM PACKET GTB SCH (09:21)
[2017-02-23] MEDS: CEFEPIME 1GM/50 ML IVPB SCH (09:36)
--- NOTE | 2017-02-23 13:35 | RADRPT ---
Vent Rate: 80 bpm RR Interval: 0 msec SD Interval: 164 msec QRS Duration: 94 msec QT Interval: 386 msec QTC Interval: 445 msec P-R-T [place]: 61 - 24 - 34 degrees Normal sinus rhythm Normal ECG Electronically Signed By: Wali Mix [id number]
--- NOTE | 2017-02-23 13:40 | RADRPT ---
Vent Rate: 115 bpm RR Interval: 0 msec [place] Interval: 136 msec QRS Duration: 86 msec QT Interval: 374 msec QTC Interval: 517 msec P-R-T [place]: 62 - 19 - 65 degrees Sinus tachycardia Nonspecific ST abnormality Abnormal ECG Electronically Signed By: Wali Mix [id number]
--- NOTE | 2017-02-23 13:48 | RADRPT ---
Vent Rate: 69 bpm RR Interval: 0 msec [place] Interval: 146 msec QRS Duration: 88 msec QT Interval: 432 msec QTC Interval: 462 msec P-R-T [place]: 60 - 53 - 57 degrees Normal sinus rhythm Normal ECG Electronically Signed By: Wali Mix [id number]
[2017-02-23 14:00] VITALS: BP 194/95; RESP 20
[2017-02-23 14:30] VITALS: BP 162/65; PULSE 71
--- NOTE | 2017-02-23 15:58 | PN ---
Date/Time of Note Date/Time of Note DATE: 02/23/17 TIME: 15:56 Assessment/Plan VTE Prophylaxis VTE Prophylaxis Intervention: ambulation Lines/Catheters IV [facility] ([facility] Peripheral IV Urinary Cath still in place: No Assessment/Plan Chief Complaint/Hosp Course 1. Sepsis w e.coli ESBL s 2. Bilateral nephrostomy tubes. History of past surgery of ileostomy tube placement. 3. CKD, mild 4. anemia, 5. Hypertension, uncontrolled Problems: Assessment/Plan 1. Control HTN Subjective 24 Hr Interval Summary Constitutional: no complaints Cardiovascular: chest pain, edema, lightheadedness, no complaints, orthopenea, other (high BP), palpitations, paroxysmal nocturnal dyspnea Exam/Review of Systems Vital Signs Vitals Vital Signs Date Time Temp Pulse Resp B/P Pulse Ox O2 Delivery O2 Flow Rate FiO2 02/23/17 14:00 98.1 76 20 194/95 98 02/22/17 10:19 Nasal Cannula 2.0 Intake and Output 02/22/17 02/22/17 02/23/17 15:00 23:00 07:00 Intake Total 50 ml 2590 ml 900 ml Output Total 3920 ml 2250 ml Balance 50 ml -1330 ml -1350 ml Exam Constitutional: alert, oriented Respiratory: diminished breath sounds Cardiovascular: regular rate and rhythm Gastrointestinal: other (ileostomy), soft Musculoskeletal: muscle weakness Results Result Diagram: 02/20/178 02/20/178 Results 24 hrs Laboratory Tests Test 02/22/17 15:58 Troponin I < 0.012 Medications Medications Current Medications Sodium Chloride (NS) 1,000 ml @ 70 mls/hr [id number] IV Last administered on 02/23 09:21; Admin Dose 70 MLS/HR; Start 02/18/17 at 00:00 Acetaminophen (Tylenol Tab) 650 mg Q6H PRN PO PAIN AND OR ELEVATED TEMP Last administered on 02/22/17 20:44; Admin Dose 650 MG; Start 02/18/17 at 00:00 Polyethylene Glycol (Miralax) 17 gm DAILY GTB Last administered on 02/23/17 09 :21; Admin Dose 17 GM; Start 02/18/17 at 15:30 Bisacodyl (Dulcolax) 5 mg DAILY PRN PO CONSTIPATION Last administered on 05:27; Admin Dose 5 MG; Start 02/18/17 at 17:00 Citric Acid/ Sodium Citrate (Bicitra) 30 ml TID PO Last administered on 13:15; Admin Dose 30 ML; Start 02/18/17 at 17:30 Docusate Sodium (Colace) 100 mg Q12H PRN PO CONSTIPATION Last administered on 20:57; Admin Dose 100 MG; Start 02/18/17 at 17:00 Pantoprazole (Protonix Tab) 40 mg DAILY@06 PO Last administered on 02/23/17 06 :25; Admin Dose 40 MG; Start 02/19/17 at 06:00 Zolpidem Tartrate (Ambien) 5 mg HS PRN PO INSOMNIA Last administered on 22:56; Admin Dose 5 MG; Start 02/20/17 at 23:30 Diphenhydramine HCl (Benadryl) 25 mg Q6H PRN PO ITCHING; Start 02/21/17 at 09: 30 Hydralazine HCl 10 mg 10 mg Q6H PRN IV ELEVATED BLOOD PRESSURE Last administered on 02/22/17 20:44; Admin Dose 10 MG; Start 02/21/17 at 09:30 Cefepime HCl (Maxipime 1gm/50 ml (Pmx)) 50 ml @ 100 mls/hr Q12 IVPB Last administered on 02/23/17 09:36; Admin Dose 100 MLS/HR; Start 02/21/17 at 21:00 JESSICA MAYO Feb 23, 2017 15:58
[2017-02-23] MEDS ORDERED: METOPROLOL (XL) 50 MG TAB PO SCH (16:00)
--- NOTE | 2017-02-23 16:38 | PDOCDIS ---
Discharge Instructions CONDITION Patient Condition: Stable HOME CARE INSTRUCTIONS: Special Diet: 2GMNA ACTIVITY: Activity Restrictions: Slowly Increase Activity FOLLOW UP/APPOINTMENTS Follow-up Plan f/u at [facility] 1 wk urology see own pcp 1 wk MIKE TORREZ MD Feb 23, 2017 16:38
[2017-02-23] MEDS ORDERED: HYDR-3671 PO (16:44)
[2017-02-23] MEDS ORDERED: POLY17PO6 GTB (16:44)
[2017-02-23] MEDS ORDERED: AMOX1TAB10 PO (16:44)
[2017-02-23] MEDS ORDERED: METOPROLOL (XL) 25 MG TAB PO SCH (17:00)
--- NOTE | 2017-02-23 19:06 | PN ---
Date/Time of Note Date/Time of Note DATE: 02/23/17 TIME: 19:01 Assessment/Plan VTE Prophylaxis VTE Prophylaxis Intervention: ambulation Lines/Catheters IV Catheter Type (from [facility]): Peripheral IV Urinary Cath still in place: No Assessment/Plan Chief Complaint/Hosp Course 82-year-old male who is status post cystectomy prostatectomy and ileal loop urinary diversion in September 2016 in [place], has bilateral nephrostomy tubes. There is no urine draining through the ileal loop . Pt had bilateral hydronephrosis. A loopogram was done during his last admission and showed no reflux from the ileal loop into the ureters. He had bilateral hydronephrosis and because of that he did have insertion of bilateral nephrostomy tubes. The nephrostomy tubes are draining well and the urine is clear. The repeated CT scan done this time showed the hydronephrosis to have subsided. Bilateral nephrostogram done: Moderate right and mild to moderate left hydronephrosis and hydroureter. Obstruction of bilateral ureters distally without evidence of passage of contrast into the ileal conduit. _ The patient needs referral to either [facility] or [facility] to have an intervention where the ureters are reconnected to the ileal loop or if on the left side balloon dilatation could be done to the opening of the ureter into the ileal loop but on the right side the obstruction is not at the ureteroileal anastomosis it appears to be about 10 cm higher and that may require reimplantation of the ureter if it could reach the ileal loop. The case assistant has worked on the referral and it appears arrangements were made to where he will be seen at [facility] and they will call him on February 26 to notify him of the appointment date and time Problems: Subjective 24 Hr Interval Summary Constitutional: no complaints Eyes: no complaints ENT: no complaints Respiratory: no complaints, No cough, No pain Cardiovascular: no complaints, No chest pain Gastrointestinal: No nausea, No vomiting Genitourinary: no complaints, other (Both nephrostomy tubes are draining well and no output from the urostomy itself) Musculoskeletal: no complaints Skin: no complaints Neurologic: no complaints Endocrine: no complaints Exam/Review of Systems Vital Signs Vitals Vital Signs Date Time Temp Pulse Resp B/P Pulse Ox O2 Delivery O2 Flow Rate FiO2 02/23/17 14:30 71 162/65 02/23/17 14:00 98.1 20 98 02/22/17 10:19 Nasal Cannula 2.0 Intake and Output 02/22/17 02/22/17 02/23/17 15:00 23:00 07:00 Intake Total 50 ml 2590 ml 900 ml Output Total 3920 ml 2250 ml Balance 50 ml -1330 ml -1350 ml Exam Constitutional: alert, oriented Psych: no complaints Head: normocephalic Eyes: nl conjunctiva ENMT: nl external ears & nose Neck: non-tender, supple Respiratory: normal air movement Cardiovascular: No edema Gastrointestinal: other (Urostomy not draining anything), soft, surgical scars Genitourinary - Male: other (Bilateral nephrostomy tube draining clear urine) Musculoskeletal: nl extremities to inspection Extremities: normal pulses, No calf tenderness, No edema Results Result Diagram: 02/20/1744702/20/17447 Medications Medications Current Medications Sodium Chloride (NS) 1,000 ml @ 70 mls/hr [id number] IV Last administered on 02/23 09:21; Admin Dose 70 MLS/HR; Start 02/18/17 at 00:00 Acetaminophen (Tylenol Tab) 650 mg Q6H PRN PO PAIN AND OR ELEVATED TEMP Last administered on 02/22/17 20:44; Admin Dose 650 MG; Start 02/18/17 at 00:00 Polyethylene Glycol (Miralax) 17 gm DAILY GTB Last administered on 02/23/17 09 :21; Admin Dose 17 GM; Start 02/18/17 at 15:30 Bisacodyl (Dulcolax) 5 mg DAILY PRN PO CONSTIPATION Last administered on 05:27; Admin Dose 5 MG; Start 02/18/17 at 17:00 Citric Acid/ Sodium Citrate (Bicitra) 30 ml TID PO Last administered on 13:15; Admin Dose 30 ML; Start 02/18/17 at 17:30 Docusate Sodium (Colace) 100 mg Q12H PRN PO CONSTIPATION Last administered on 20:57; Admin Dose 100 MG; Start 02/18/17 at 17:00 Pantoprazole (Protonix Tab) 40 mg DAILY@06 PO Last administered on 02/23/17 06 :25; Admin Dose 40 MG; Start 8/14/17 at 06:00 Zolpidem Tartrate (Ambien) 5 mg HS PRN PO INSOMNIA Last administered on 22:56; Admin Dose 5 MG; Start 02/20/17 at 23:30 Diphenhydramine HCl (Benadryl) 25 mg Q6H PRN PO ITCHING; Start 02/21/17 at 09: 30 Hydralazine HCl 10 mg 10 mg Q6H PRN IV ELEVATED BLOOD PRESSURE Last administered on 02/22/17 20:44; Admin Dose 10 MG; Start 02/21/17 at 09:30 Cefepime HCl (Maxipime 1gm/50 ml (Pmx)) 50 ml @ 100 mls/hr Q12 IVPB Last administered on 02/23/17 09:36; Admin Dose 100 MLS/HR; Start 02/21/17 at 21:00 Metoprolol Succinate (Toprol Xl) 25 mg DAILY PO Last administered on 02/23/17 18:06; Admin Dose 25 MG; Start 02/23/17 at 17:00 DOROTA BALDWIN MD Feb 23, 2017 19:06
[2017-02-23 19:51] VITALS: BP 168/73; RESP 18
[2017-02-24] MEDS ORDERED: METOPROLOL (XL) 25 MG TAB PO SCH (09:00)
--- NOTE | 2017-02-25 20:26 | DS ---
Date/Time of Note Date/Time of Note DATE: 02/25/17 TIME: 20:19 Discharge Summary Admission/Discharge Info Admit Date/Time Feb 17, 2017 at 20:56 Discharge Date/Time Feb 23, 2017 at 20:10 Discharge Diagnosis S/P CYSTECTOMY, PROSTATECTOMY AND DEVELOPED BILATERAL HYDRONEPHROSIS Patient Condition: Serious Consults UROLOGY, DR BALDWIN Procedures BILATERAL NEPHROSTOGRAM Hx of Present Illness PT WAS ADMITTED WITH DEVELOPED HYDRONEPHROSIS AFTER RECENT PROSTATECTOMY, CYSTECTOMY AND LOOP DIVERSION. NEPHROSTOMIES WERE MALFUNCTION. aFTER STENT PLACEMENT THEY DECOMPRESSED BOTH KIDNEYS AND HYDRONEPHROSIS SUBSIDED Hospital Course 82-year-old male who is status post cystectomy prostatectomy and ileal loop urinary diversion in September 2016 in [place], has bilateral nephrostomy tubes. There is no urine draining through the ileal loop . Pt had bilateral hydronephrosis. A loopogram was done during his last admission and showed no reflux from the ileal loop into the ureters. He had bilateral hydronephrosis and because of that he did have insertion of bilateral nephrostomy tubes. The nephrostomy tubes are draining well and the urine is clear. The repeated CT scan done this time showed the hydronephrosis to have subsided. Bilateral nephrostogram done: Moderate right and mild to moderate left hydronephrosis and hydroureter. Obstruction of bilateral ureters distally without evidence of passage of contrast into the ileal conduit. _ The patient needs referral to either [facility] or [facility] to have an intervention where the ureters are reconnected to the ileal loop or if on the left side balloon dilatation could be done to the opening of the ureter into the ileal loop but on the right side the obstruction is not at the ureteroileal anastomosis it appears to be about 10 cm higher and that may require reimplantation of the ureter if it could reach the ileal loop. The returned case inspector has worked on the referral and it appears arrangements were made to where he will be seen at [facility] and they will call him on Sunday, February 26 to notify him of the appointment date and time Home Meds Active Scripts Amoxicillin/Potassium Clav (Amox-Clav 875-125 mg Tablet) 875-125 mg Tab, 1 TAB PO BID, #20 TAB Prov:MIKE TORREZ MD 02/23/17 Polyethylene Glycol* (Miralax*) 17 Gm Powd.pack, 17 GM GTB DAILY for 28 Days Prov:MIKE TORREZ MD 02/23/17 Hydralazine Hcl* (Hydralazine Hcl*) 25 Mg Tab, 25 MG PO TID for 28 Days, #30 TAB Prov:MIKE TORREZ MD 02/23/17 Pantoprazole* (Pantoprazole*) 40 Mg Tablet.dr, 40 MG PO DAILY@06 for 28 Days Prov:MIKE TORREZ MD 01/08/17 Docusate Sodium (Dok) 100 Mg Capsule, 100 MG PO Q12H Y for CONSTIPATION for 28 Days, CAP Prov:MIKE TORREZ MD 01/08/17 Bisacodyl* (Bisacodyl*) 5 Mg Tablet.dr, 5 MG PO DAILY Y for CONSTIPATION for 28 Days Prov:MIKE TORREZ MD 01/08/17 Citric Acid/Sodium Citrate (Sod Citrate-Citric Acid Soln) 473 Ml Solution, 30 ML PO TID for 28 Days Prov:MIKE TORREZ MD 01/08/17 Primary Care Provider JESSICA Quinn Feb 25, 2017 20:26
== END 2017-02-23 20:10 | disposition home or self-care (01) | DRG 698 ==
LOC: E/R 15:18 → MS1 20:56
PROVIDERS: ADMIT Internal Medicine Nephrology; ATTEND Internal Medicine Nephrology
PROC: BT141ZZ Fluoroscopy of Kidneys, Ureters and Bladder using Low Osmolar Contrast (ICD-10-PCS; principal; 2017-02-19)
DX: T83.512A Infection and inflammatory reaction due to nephrostomy catheter, initial encounter (principal); A41.9 Sepsis, unspecified organism; N17.9 Acute kidney failure, unspecified; E87.2 Acidosis; N13.6 Pyonephrosis; N39.0 Urinary tract infection, site not specified; Z93.6 Other artificial openings of urinary tract status; E86.0 Dehydration; N18.9 Chronic kidney disease, unspecified; D64.9 Anemia, unspecified; I12.9 Hypertensive chronic kidney disease with stage 1 through stage 4 chronic kidney disease, or unspecified chronic kidney disease; B96.20 Unspecified Escherichia coli [E. coli] as the cause of diseases classified elsewhere; Z96.0 Presence of urogenital implants; Z88.1 Allergy status to other antibiotic agents
CPT/HCPCS: 71010; 74176; 74425; 80053; 81001; 82565; 83605; 83690; 84484; 84520; 85025; 85610; 85730; 87040; 87045; 87086; 93005; 94664; 96374; 96375; J0360; J0692; J0696; J1200; J2185; J2543; J2930; J3370; J7030; J7040; Q9967

== ENCOUNTER 2017-07-04 17:57 | Inpatient (IN) | END 2017-07-08 16:57 | disposition home or self-care (01) | DRG 699 ==

== ENCOUNTER 2017-10-15 00:40 | Inpatient (IN) | END 2017-10-17 16:20 | disposition home health service (06) | DRG 699 ==

== ENCOUNTER 2017-10-24 14:26 | Observation (INO) | END 2017-10-26 15:10 | disposition home or self-care (01) ==

== ENCOUNTER 2017-11-06 08:50 | Emergency (ER) | END 2017-11-06 12:47 | disposition home or self-care (01) ==